=== PATIENT | female | born 1980 | race Caucasian/White ===

== ENCOUNTER → 2017-06-19 10:26 | Outpatient (CLI) | payer BC, SELFPAY ==
[2017-06-20 10:26] LABS: HIV - WCH Non-Reactive (Nonreactive)
[2017-06-20 11:12] LABS: HEPATITIS B SURFACE AG Negative (Negative); Hep C Antibodies 4.8 s/co ratio (0.0-0.9)
[2017-06-22 02:33] LABS: Rapid Plasmin Reagin (RPR) NONREACTIVE (NONREACTIVE)
== END ==
PROVIDERS: Visit Provider Obstetrics & Gynecology
DX: Z11.3 Encounter for screening for infections with a predominantly sexual mode of transmission (principal)
CPT/HCPCS: 36415; 86592; 86703; 86803; 87340

== ENCOUNTER → 2017-07-02 13:41 | Outpatient (CLI) | payer BC, SELFPAY ==
[2017-07-05 10:17] LABS: HPV Reflexed? NOT INDICATED
== END ==
PROVIDERS: Visit Provider Obstetrics & Gynecology
DX: Z12.4 Encounter for screening for malignant neoplasm of cervix (principal)
CPT/HCPCS: 88175; G0145

== ENCOUNTER → 2017-07-12 11:54 | Outpatient (CLI) | payer BC, SELFPAY ==
[2017-07-12 14:14] LABS: Absolute Neutrophil Count 3.3 X10^3/uL (2.0-7.7); Basophil# 0.02 X10^3/uL; Basophil% 0.3 % (0-1); Eosinophils% 6.3 % (0-5); Hematocrit 40.7 % (37-47); Lymphocyte % 33.2 % (19-41); Mean Corp Hgb Conc 31.9 g/gl (32-36); Mean Corpuscular Hgb 28.6 pg (27.0-32.0); Mean Corpuscular Volume 89.5 fL (81-99); Mean Platelet Vol. 10.6 fl (6.2-12.0); Monocyte# 0.45 X10^3/uL; Monocyte% 7.1 % (0-10); Neutrophil # 3.34 X10^3/uL (2.7-7.7); Neutrophil % 52.9 % (47-70); Platelet Count 277 K/mm3 (150-450); RBC Distribution Width SD 42.8 fl (35.1-43.9); Red Blood Count 4.55 M/mm3 (4.2-5.4); White Blood Count 6.3 K/mm3 (4.4-11.0)
[2017-07-12 14:17] LABS: POSITIVE COUNT NO; POSITIVE DIFFERENTIAL NO; POSITIVE MORPHOLOGY NO
[2017-07-12 14:24] LABS: ALB/GLOB Ratio 0.8 RATIO (0.9-2.4); AST(SGOT) 13 U/L (15-37); Alanine Aminotransfer ALT/SGPT 24 U/L (13-56); Albumin, Serum 3.3 g/dL (3.2-5.0); Alkaline Phosphatase 54 U/L (45-117); Anion Gap 7 (5-15); BUN 11 mg/dL (7-18); Calcium,Total 8.2 mg/dL (8.5-10.1); Chloride 109 mmol/L (98-107); Cholesterol 158 mg/dL (200); Creatinine, Serum 0.65 mg/dL (0.55-1.02); EST Glomerular Filtration Rate 108 mL/min (>60); Est Glom Filt Rate - Afr Amer 131 mL/min (>60); Glucose 94 mg/dL (74-106); High Density Lipoprotein 37 mg/dL; Potassium 4.3 mmol/L (3.5-5.1); Protein, Total 7.3 g/dL (6.4-8.2); Sodium Level 140 mmol/L (136-145); Triglycerides 94 mg/dL; Very Low Density Lipoprotein 19 mg/dL (5-40)
[2017-07-12 14:30] LABS: Hemoglobin A1c 5.5 % (4.2-6.3)
[2017-07-13 14:35] LABS: Vitamin D,25 Hydroxy 13.8 ng/mL (29.95-100.01)
[2017-07-17 13:16] LABS: Thyroid Stim Hormone (TSH) 1.65 uIU/mL (0.358-3.74)
== END ==
PROVIDERS: Family Provider Family Medicine; PCP Family Medicine; Visit Provider Family Medicine
DX: Z00.00 Encounter for general adult medical examination without abnormal findings (principal)
CPT/HCPCS: 36415; 80053; 80061; 82306; 83036; 84443; 85025

== ENCOUNTER → 2018-12-20 15:44 | Outpatient (CLI) | payer BC, SELFPAY ==
[2018-12-20 17:39] LABS: Absolute Lymphocyte Count 2.08 X10^3/uL (0.83-4.51); Absolute Neutrophil Count 4.5 X10^3/uL (2.0-7.7); Basophil# 0.04 X10^3/uL; Basophil% 0.5 % (0-1); Eosinophil# 0.21 X10^3/uL; Eosinophils% 2.8 % (0-5); Hematocrit 39.9 % (37-47); Hemoglobin 12.8 g/dL (12.0-15.0); Lymphocyte # 2.08 X10^3/ul (4.0); Lymphocyte % 28.1 % (19-41); Mean Corp Hgb Conc 32.1 g/dL (32-36); Mean Corpuscular Volume 90.5 fL (81-99); Mean Platelet Vol. 10.5 fl (6.2-12.0); Monocyte# 0.49 X10^3/uL; Monocyte% 6.6 % (0-10); NRBC Flagged by Analyzer 0 % (0-5); Neutrophil # 4.54 X10^3/uL (2.7-7.7); Neutrophil % 61.6 % (47-70); Platelet Count 306 K/mm3 (150-450); RBC Distribution Width CV 12.9 % (11.6-14.6); RBC Distribution Width SD 42.9 fl (35.1-43.9); Red Blood Count 4.41 M/mm3 (4.2-5.4); White Blood Count 7.4 K/mm3 (4.4-11.0)
[2018-12-20 17:56] LABS: ALB/GLOB Ratio 1.1 RATIO (0.9-2.4); AST(SGOT) 18 U/L (15-37); Alanine Aminotransfer ALT/SGPT 27 U/L (13-56); Albumin, Serum 3.7 g/dL (3.2-5.0); Alkaline Phosphatase 59 U/L (45-117); Anion Gap 4 (5-15); BUN 9 mg/dL (7-18); BUN/Creat Ratio 13.2 RATIO (10-20); Calcium,Total 8.7 mg/dL (8.5-10.1); Chloride 105 mmol/L (98-107); Creatinine, Serum 0.68 mg/dL (0.55-1.02); EST Glomerular Filtration Rate 101 mL/min (>60); Est Glom Filt Rate - Afr Amer 122 mL/min (>60); Globulin 3.4 g/dL (2.2-4.2); Glucose 81 mg/dL (74-106); Potassium 4.1 mmol/L (3.5-5.1); Protein, Total 7.1 g/dL (6.4-8.2); Sodium Level 138 mmol/L (136-145)
== END ==
PROVIDERS: Family Provider Family Medicine; PCP Family Medicine; Referring Provider Family Medicine; Visit Provider Family Medicine
DX: L50.9 Urticaria, unspecified (principal)
CPT/HCPCS: 36415; 80053; 82140; 85025

== ENCOUNTER 2019-01-30 22:53 | Emergency (ER) | payer BC, SELFPAY ==
[2019-01-30 22:55] VITALS: BP 129/83; PULSE 90; RESP 18; TEMP 36.8; O2SAT 99; BMI 47.5
--- NOTE | 2019-01-30 23:24 | ED.VIS.GI ---
History of Present Illness Chief Complaint: Abd Pain Informant: Patient - Abdominal Pain/Flank Pain Onset: Hours - 7, - - But have been having more brief episodes of this for the past month Timing: Continuous, Waxes and wanes Quality: Aching Location: Epigastric - And supraumbilical Current Severity: Severe - As patient having a wave of pain during exam Maximum Severity: Severe - Nausea/Vomiting/Emesis GI Symptom: Nausea. Negative for: Vomiting Severity: Mild - Diarrhea/Melena/Hematochezia GI Symptom: - - Last bowel movement several days ago, she does not remember what it was like but did not alarm her. Negative for: Diarrhea, Melena, Hematochezia Associated Symptoms: Negative for: Dysuria, Frequency, Hematuria, Urgency LMP: Denies Narrative: States she had some testing 3 years ago for pain like this but did not get answers and did not follow-up. Has been having brief pains for a month or so, but they have been fairly brief and not as severe. She had some wine just prior to this starting, may be half a glass. She is not a heavy drinker. No history of abdominal surgeries. No radiation into her chest but it does radiate to her mid back. - Past Medical History (1) Obsessive compulsive disorder Status: Chronic Past Medical History - Allergies and Home Meds Allergies/Adverse Reactions: Allergies hops Adverse Reaction (Verified 01/31/19 01:06) Other Primary Care Physician: Yair Riojas MD [Primary Care Provider] - Lives: Roommate Smoking Status: Former smoker Alcohol: Occasional Drugs: None Review of Systems General: Denies: Chills, Fever, Sweats Eyes: Denies: Visual changes - bilaterally, Diplopia ENT: Denies: Rhinorrhea, Sore throat Cardiovascular: Denies: Chest pain, Palpitations Respiratory: Denies: Dyspnea, Cough, Dyspnea on exertion Gastrointestinal: Reports: Abdominal pain, Nausea. Denies: Vomiting, Diarrhea, Melena, Hematochezia Genitourinary: Denies: Dysuria, Hematuria, Frequency Musculoskeletal: Reports: Back pain. Denies: Extremity Pain Skin: Denies: Rash, Wounds Neurological: Denies: Headache, Weakness, Numbness Psych: Reports: Anxiety. Denies: Suicidal thoughts Physical Exam Vital Signs/Narrative: Vital Signs Temp Pulse Resp BP Pulse Ox 01/30/19 22:55 98.3 F 90 18 129/83 H 99 Inital Vital Signs reviewed: Yes General: Well nourished, Well developed, Obese, Acute Distress - And pain when becomes severe Head: Normocephalic, Atraumatic Eyes: Perrl, EOMI ENT: Moist mucous membranes, No rhinorrhea Neck: Supple, Nontender Cardiovascular: Regular rate, Regular rhythm, No murmurs Respiratory: No distress, CTA bilaterally, Chest nontender Abdomen: Soft, Nondistended, Normal bowel sounds, Tender - Epigastrium, supraumbilical area, left upper quadrant., - - No hernia. Limited by obesity. No tenderness in right upper quadrant or throughout lower abdomen. Negative for: Soliz's sign Back: Nontender, Normal Inspection. Negative for: CVA tenderness Extremities: Nontender, No edema Skin: Normal color, No rash, No Trauma Neurological: Alert, Oriented x3, Cranial nerves II-XII grossly intact, Normal Strength, Normal Sensation Psychological: Normal Mood, - - Anxious Diagnostic/Tx/Re-eval Impressions Abdomen/Pelvis CT 01/31/19 23:22 IMPRESSION: 1. Fluid-filled small bowel with mild distention suggests possible partial obstruction and/or ileus. Findings also suggest a possible sequela of a gastroenteritis with some involvement of the right colon as well. 2. Nonspecific abnormal thickening of the merlos of the distal esophagus. Electronically Signed: Lyubov Shipley MD at 1:39 EST , Service support , 01/31/19 23:22 Abdomen/Pelvis W IV Cont ONLY [CT] Stat Laboratory Results 01/30/19 01/30/19 01/30/19 23:24 23:24 23:24 WBC 8.2 RBC 4.72 Hgb 13.8 Hct 41.4 MCV 87.7 MCH 29.2 MCHC 33.3 RDW Std Deviation 41.3 RDW Coeff of Fabiano 12.8 Plt Count 319 MPV 9.7 Immature Gran % (Auto) 0.200 Neut % (Auto) 59.6 Lymph % (Auto) 30.0 Edwards % (Auto) 7.6 Eos % (Auto) 2.2 Baso % (Auto) 0.4 Absolute Neuts (auto) 4.9 Absolute Lymphs (auto) 2.46 Nucleated RBC % 0 Sodium 139 Potassium 3.9 Chloride 106 Carbon Dioxide 24.0 Anion Gap 9 BUN 10 Creatinine 0.69 Estim Creat Clear Calc 96.55 Est GFR (MDRD) Af Amer 121 Est GFR (MDRD) Non-Af 100 BUN/Creatinine Ratio 14.6 Glucose 91 Calcium 9.2 Total Bilirubin 0.30 AST 23 ALT 43 Alkaline Phosphatase 53 Total Protein 7.1 Albumin 3.5 Globulin 3.6 Albumin/Globulin Ratio 1.0 Lipase 41 L Serum , Qual NEGATIVE Urine Color Urine Clarity Urine pH Ur Specific [place] Urine Protein Urine Glucose (UA) Urine Ketones Urine Occult Blood Urine Nitrite Urine Bilirubin Urine Urobilinogen Ur Leukocyte Esterase Urine RBC Urine WBC Ur Squamous Epith Cells Calcium Oxalate Crystal Amorphous Sediment Urine Bacteria Urine Mucus 01/31/19 00:40 WBC RBC Hgb Hct MCV MCH MCHC RDW Std Deviation RDW Coeff of Fabiano Plt Count MPV Immature Gran % (Auto) Neut % (Auto) Lymph % (Auto) Edwards % (Auto) Eos % (Auto) Baso % (Auto) Absolute Neuts (auto) Absolute Lymphs (auto) Nucleated RBC % Sodium Potassium Chloride Carbon Dioxide Anion Gap BUN Creatinine Estim Creat Clear Calc Est GFR (MDRD) Af Amer Est GFR (MDRD) Non-Af BUN/Creatinine Ratio Glucose Calcium Total Bilirubin AST ALT Alkaline Phosphatase Total Protein Albumin Globulin Albumin/Globulin Ratio Lipase Serum , Qual Urine Color Yellow Urine Clarity Sl. Cloudy Urine pH 5.0 Ur Specific [place] 1.025 Urine Protein 30 H Urine Glucose (UA) Normal Urine Ketones 150 H Urine Occult Blood 10 H Urine Nitrite Negative Urine Bilirubin Negative Urine Urobilinogen 1 H Ur Leukocyte Esterase 25 H Urine RBC 0-5 SEEN Urine WBC 0-5 SEEN Ur Squamous Epith Cells 5-10 SEEN Calcium Oxalate Crystal 1+ Amorphous Sediment 1+ Urine Bacteria 1+ Urine Mucus 0 SEEN - Medical Decision Making As above labs and urine are all normal, is negative, her CT shows abnormal bowel findings, but these are nonspecific. First off, she has never had any abdominal surgeries and there is no mass or transition point so I do not think she has a bowel obstruction. Second, she has good bowel sounds and does not clinically have an ileus. It is possible that alcohol triggered this severe episode she had today, but the etiology is still unknown based on this testing. She feels much better after fluids, antiemetics, Bentyl, GI cocktail, and anti-inflammatories. We did not need to treat her with narcotics to get her feeling better. There were distal esophageal abnormal findings on the CT. For now I would put her on a daily PPI for a month, prescribe prn's for symptoms, and advised that she follow-up with her doctor. Differential is still include multiple gastrointestinal disorders such as celiac, simple reflux, other types of leaky bowel disease, inflammatory bowel disease, or just simply alcoholic gastritis. Discussed at length with the patient and she is comfortable with this overall plan. ED Disposition - Plan for ED Patient: Disposition: Home or Assisted Living Diagnosis: Upper abdominal pain of unknown etiology Instructions: ABDOMINAL PAIN, Unknown Cause, (Female) Prescriptions: Dicyclomine HCl [Bentyl] 20 mg PO . Q4-6H PRN #20 cap PRN Reason: abdominal pain Prescription Printed Omeprazole 1 cap PO DAILY #30 cap Prescription Printed proMETHazine tablet [Phenergan] 25 mg PO Q6H PRN PRN #10 tab PRN Reason: Nausea Prescription Printed Referrals: Yair Riojas MD [Primary Care Provider] - As soon as possible
[2019-01-30] MEDS: Ketorolac 30 MG/ML Syringe IV (23:41)
[2019-01-30] MEDS: Mag Hydrox/Al Hydrox/Simeth 30 ML UDC PO (23:41)
[2019-01-30] MEDS: Ondansetron 4 MG/2 ML Vial IV (23:41)
[2019-01-30] MEDS: Dicyclomine 10 MG Capsule 20 MG PO (23:41)
[2019-01-30] MEDS: 0.9% Normal Saline 1,000 ML 1000 ML IV (23:44)
[2019-01-30 23:48] LABS: Absolute Lymphocyte Count 2.46 X10^3/uL (0.83-4.51); Absolute Neutrophil Count 4.9 X10^3/uL (2.0-7.7); Basophil# 0.03 X10^3/uL; Basophil% 0.4 % (0-1); Eosinophil# 0.18 X10^3/uL; Eosinophils% 2.2 % (0-5); Hematocrit 41.4 % (37-47); Hemoglobin 13.8 g/dL (12.0-15.0); Lymphocyte # 2.46 X10^3/ul (4.0); Mean Corp Hgb Conc 33.3 g/dL (32-36); Mean Corpuscular Hgb 29.2 pg (27.0-32.0); Mean Corpuscular Volume 87.7 fL (81-99); Mean Platelet Vol. 9.7 fl (6.2-12.0); Monocyte# 0.62 X10^3/uL; Monocyte% 7.6 % (0-10); NRBC Flagged by Analyzer 0 % (0-5); Neutrophil # 4.89 X10^3/uL (2.7-7.7); Neutrophil % 59.6 % (47-70); Platelet Count 319 K/mm3 (150-450); RBC Distribution Width CV 12.8 % (11.6-14.6); RBC Distribution Width SD 41.3 fl (35.1-43.9); Red Blood Count 4.72 M/mm3 (4.2-5.4); White Blood Count 8.2 K/mm3 (4.4-11.0)
[2019-01-30 23:59] LABS: AST(SGOT) 23 U/L (15-37); Alanine Aminotransfer ALT/SGPT 43 U/L (13-56); Albumin, Serum 3.5 g/dL (3.2-5.0); Alkaline Phosphatase 53 U/L (45-117); Anion Gap 9 (5-15); BUN 10 mg/dL (7-18); BUN/Creat Ratio 14.6 RATIO (10-20); Calcium,Total 9.2 mg/dL (8.5-10.1); Chloride 106 mmol/L (98-107); Creatinine, Serum 0.69 mg/dL (0.55-1.02); EST Glomerular Filtration Rate 100 mL/min (>60); Est Glom Filt Rate - Afr Amer 121 mL/min (>60); Estimated Creatinine Clearance 96.55 ml/min; Globulin 3.6 g/dL (2.2-4.2); Glucose 91 mg/dL (74-106); Internal QC Validated? YES +Cl - CLEAR BKGD; Lipase 41 U/L (73-393); Potassium 3.9 mmol/L (3.5-5.1); Pregnancy, Serum, hCG Quali. NEGATIVE Negative; Protein, Total 7.1 g/dL (6.4-8.2); Sodium Level 139 mmol/L (136-145)
[2019-01-31 00:46] LABS: Mucous, Urine 0 SEEN /hpf (<or=2+)
[2019-01-31 01:01] LABS: Color, Urine Yellow (Yellow); Glucose, Dipstick Normal (Normal); Leukocyte Esterase-Dipstick 25 /ul (Negative); Nitrite-Dipstick Negative (Negative); Occult Blood-Urine 10 /ul (Negative); Protein-Dipstick 30 mg/dl (Negative); Specific Gravity, Urine 1.025 (1.002-1.030); Urine Bilirubin Dipstick Negative (Negative); Urine Clarity Sl. Cloudy (Clear); Urine Urobilinogen 1 mg/dl (Normal)
[2019-01-31 01:07] VITALS: BP 108/68; PULSE 65; RESP 18; O2SAT 100
[2019-01-31 01:10] LABS: Ketone-Dipstick 150 mg/dl (Negative)
[2019-01-31 01:12] LABS: White Blood Cells 0-5 SEEN /hpf (0-5)
[2019-01-31 01:13] LABS: Amorphous Sediment 1+; Bacteria 1+ /hpf (None Seen); Calcium Oxalate Crystals Ur 1+ /hpf (<or=2+); Red Blood Cells-Urine 0-5 SEEN /hpf (0-5); Squamous Epithelial Cells - UA 5-10 SEEN /hpf (5-10)
[2019-01-31 03:08] VITALS: BP 111/70; PULSE 75; RESP 14; O2SAT 98
--- NOTE | 2019-01-31 23:22 | CT_ITS ---
STUDY: CT ABDOMEN AND PELVIS WITH CONTRAST REASON FOR EXAM: Female, 39 years old. Abdominal pain for 8 hours. Patient has elevated white count. RADIATION DOSAGE (If Supplied By Facility): CTDIvol = ( 18.74 ) mGy, DLP = ( 1335.61 ) mGycm TECHNIQUE: Transaxial images were obtained from the dome of the diaphragm to the symphysis pubis without oral contrast. 100 mL of Isovue-370 was administered. Sagittal and coronal images were reconstructed. Individualized dose optimization techniques were used for this CT. COMPARISON: Prior comparison studies are not available for review at this time. FINDINGS: The visualized lung bases are unremarkable. The visualized portions of the heart are within normal limits. Normal liver. The gallbladder is contracted. Normal spleen. There is diffuse atrophy of the pancreas. Normal bilateral adrenal glands. Normal right kidney. Normal left kidney. There appears to be abnormal thickening of the merlos of the distal esophagus which measure up to 10.9 mm. Normal visualized stomach. There is fluid filled small bowel with what appears to be mild dilatation measuring up to 2.7 cm. This appears to involve primarily the mid and distal small bowel. The proximal small bowel does not appear to be dilated. There is also fluid filled right colon also probably related to acute infection or inflammation. Stool is visible to the transverse colon, descending colon and sigmoid colon. The colon is not dilated. The appendix is visualized and appears normal. Normal abdominal aorta. Normal inferior vena cava. Normal retroperitoneum. Normal urinary bladder. Normal visualized uterus. Patient has an IUD. There is a small umbilical hernia containing fat. Normal osseous structures. CT/Abdomen/Pelvis W IV Cont ONLY IMPRESSION: 1. Fluid-filled small bowel with mild distention suggests possible partial obstruction and/or ileus. Findings also suggest a possible sequela of a gastroenteritis with some involvement of the right colon as well. 2. Nonspecific abnormal thickening of the merlos of the distal esophagus. Electronically Signed: Lyubov Shipley MD at 1:39 EST , Service support ,
== END 2019-01-31 03:14 | disposition home or self-care (01) ==
PROVIDERS: Emergency Provider Emergency Medicine; Family Provider Family Medicine; PCP Family Medicine
DX: R10.13 Epigastric pain (principal); R10.12 Left upper quadrant pain; F42.9 Obsessive-compulsive disorder, unspecified; Z87.891 Personal history of nicotine dependence
CPT/HCPCS: 74177; 80053; 81001; 83690; 84703; 85025; 96361; 96374; 96375; 99283; J7030; Q9967; A4216; J2405

== ENCOUNTER → 2019-10-02 16:51 | Outpatient (CLI) | payer BC, SELFPAY ==
[2019-10-02 19:09] LABS: Chlamydia Trachomatis by PCR Negative (Negative); Neisserai gonorrhoeae by PCR Negative (Negative); Probe Check PASS; Sample Adequacy Control PASS; Specimen Processing Control PASS
[2019-10-03 10:44] LABS: HIV - WCH Non-Reactive (Nonreactive); Hepatitis B Surface Antigen Non-Reactive (Nonreactive)
[2019-10-09 11:06] LABS: Rapid Plasmin Reagin (RPR) NONREACTIVE (NONREACTIVE)
== END ==
PROVIDERS: PCP Family Medicine; Visit Provider Obstetrics & Gynecology
DX: Z11.3 Encounter for screening for infections with a predominantly sexual mode of transmission (principal)
CPT/HCPCS: 36415; 86592; 86703; 87340; 87491; 87591

== ENCOUNTER → 2019-12-18 15:18 | Outpatient (CLI) | payer BC, SELFPAY ==
[2019-12-18 18:06] LABS: Absolute Lymphocyte Count 1.79 X10^3/uL (0.83-4.51); Absolute Neutrophil Count 3.8 X10^3/uL (2.0-7.7); Basophil# 0.04 X10^3/uL; Basophil% 0.6 % (0-1); Eosinophils% 4.6 % (0-5); Hemoglobin 12.7 g/dL (12.0-15.0); Lymphocyte # 1.79 X10^3/ul (4.0); Lymphocyte % 27.7 % (19-41); Mean Corp Hgb Conc 31.8 g/dL (32-36); Mean Corpuscular Hgb 28.7 pg (27.0-32.0); Mean Corpuscular Volume 90.5 fL (81-99); Mean Platelet Vol. 11.2 fl (6.2-12.0); Monocyte# 0.46 X10^3/uL; Monocyte% 7.1 % (0-10); NRBC Flagged by Analyzer 0 % (0-5); Neutrophil # 3.84 X10^3/uL (2.7-7.7); Neutrophil % 59.5 % (47-70); Platelet Count 319 K/mm3 (150-450); RBC Distribution Width CV 12.9 % (11.6-14.6); RBC Distribution Width SD 42.4 fl (35.1-43.9); Red Blood Count 4.42 M/mm3 (4.2-5.4); White Blood Count 6.5 K/mm3 (4.4-11.0)
[2019-12-18 18:10] LABS: ALB/GLOB Ratio 0.8 RATIO (0.9-2.4); AST(SGOT) 16 U/L (15-37); Alanine Aminotransfer ALT/SGPT 26 U/L (13-56); Albumin, Serum 3.4 g/dL (3.2-5.0); Alkaline Phosphatase 60 U/L (45-117); Anion Gap 7 (5-15); BUN 10 mg/dL (7-18); BUN/Creat Ratio 17.2 RATIO (10-20); Calcium,Total 8.8 mg/dL (8.5-10.1); Chloride 107 mmol/L (98-107); Creatinine, Serum 0.58 mg/dL (0.55-1.02); EST Glomerular Filtration Rate 121 mL/min (>60); Est Glom Filt Rate - Afr Amer 147 mL/min (>60); Glucose 87 mg/dL (74-106); Lipase 55 U/L (73-393); Protein, Total 7.4 g/dL (6.4-8.2); Sodium Level 139 mmol/L (136-145)
== END ==
PROVIDERS: PCP Family Medicine; Referring Provider Family Medicine; Visit Provider Family Medicine
DX: R10.9 Unspecified abdominal pain (principal)
CPT/HCPCS: 36415; 80053; 83690; 85025

== ENCOUNTER → 2020-01-15 15:13 | Outpatient (CLI) | payer BC, SELFPAY | PROVIDERS: PCP Family Medicine; Visit Provider Family Medicine | DX: U07.1 COVID-19 (principal) | CPT/HCPCS: 87635; U0003 ==

== ENCOUNTER → 2020-03-18 | Outpatient (CLI) | payer BC, SELFPAY ==
[2020-03-18 14:55] LABS: Mucous, Urine 0 SEEN /hpf (<or=2+); Red Blood Cells-Urine 0 SEEN /hpf (0-5); White Blood Cells 0 SEEN /hpf (0-5)
[2020-03-18 17:42] LABS: Color, Urine Yellow (Yellow); Glucose, Dipstick Normal (Normal); Ketone-Dipstick Negative (Negative); Leukocyte Esterase-Dipstick 25 /ul (Negative); Nitrite-Dipstick Negative (Negative); Occult Blood-Urine 10 /ul (Negative); Protein-Dipstick Negative (Negative); Urine Bilirubin Dipstick Negative (Negative); Urine Clarity Clear (Clear); Urine Urobilinogen Normal (Normal)
[2020-03-18 17:48] LABS: Bacteria RARE /hpf (None Seen); Squamous Epithelial Cells - UA 0-5 SEEN /hpf (5-10)
== END | disposition home or self-care (01) ==
LOC: LABSPEC 14:53
PROVIDERS: PCP Family Medicine; Referring Provider Family Medicine; Visit Provider Family Medicine
DX: R10.9 Unspecified abdominal pain (principal)
CPT/HCPCS: 81001

== ENCOUNTER → 2020-07-27 | Outpatient (CLI) | payer BC, SELFPAY | END | disposition home or self-care (01) | PROVIDERS: PCP Family Medicine; Visit Provider Family Medicine | DX: Z20.822 Contact with and (suspected) exposure to COVID-19 (principal) | CPT/HCPCS: 87635; U0005; U0003 ==

== ENCOUNTER → 2020-09-08 | Outpatient (CLI) | payer BC, SELFPAY ==
[2020-09-08 19:16] LABS: Probe Check PASS
== END | disposition home or self-care (01) ==
LOC: LABSPEC 16:39
PROVIDERS: PCP Family Medicine; Referring Provider Family Medicine; Visit Provider Family Medicine
DX: U07.1 COVID-19 (principal); J01.90 Acute sinusitis, unspecified
CPT/HCPCS: 87635; U0005; U0003

== ENCOUNTER 2020-09-13 14:38 | Outpatient (CLI) | payer BC, SELFPAY ==
[2020-09-13 11:54] VITALS: BMI 47.5
[2020-09-13 14:46] VITALS: BMI 48.2
[2020-09-13 14:48] VITALS: BP 118/83; PULSE 69; RESP 16; TEMP 36.8; O2SAT 98; BMI 48.2
[2020-09-13 15:26] VITALS: BP 116/73; PULSE 70; RESP 16; TEMP 36.6; O2SAT 98
[2020-09-13 15:50] VITALS: BP 119/84; PULSE 74; RESP 16; TEMP 36.6; O2SAT 98
[2020-09-13 16:18] VITALS: BP 117/82; PULSE 72; RESP 18; TEMP 36.7; O2SAT 98
[2020-09-13 16:39] VITALS: BP 121/77; PULSE 76; RESP 16; TEMP 36.6
== END 2020-09-13 16:50 | disposition home or self-care (01) ==
LOC: ICUOUT 14:38 → ICU 14:40
PROVIDERS: PCP Family Medicine; Referring Provider Nurse Practitioner Acute Care; Visit Provider Nurse Practitioner Acute Care
DX: U07.1 COVID-19 (principal)
CPT/HCPCS: J7050; M0243; Q0240

== ENCOUNTER 2023-03-16 22:54 | Emergency (ER) | payer MEDICAID, SELFPAY ==
[2023-03-16 22:55] VITALS: BP 147/96; PULSE 98; RESP 24; TEMP 36.1; O2SAT 100
[2023-03-16 22:56] VITALS: BP 147/96; PULSE 98; RESP 24; TEMP 36.1; O2SAT 100; BMI 52.4
--- OUTSIDE RECORDS SUMMARY | 2023-03-16 23:19 | XMS RPT_ITS | CCD ---
Author Name Unknown Address [address] [place] [address] Organization [facility] Care Team Providers Care Client Care Manager Name Role Phone Stephane Riojas MD Primary Care Provider STEPHANE RIOJAS Primary Care Unavailable STEPHANE RIOJAS Primary Care Unavailable Medications Current Medications Medication Drug Class(es) Dates Sig (Normalized) Sig (Original) amoxicillin 875 mg / clavulanate 125 mg oral tablet (2 sources) Penicillin-class Antibacterial Start: 12-15-2022 End: 12-20-2022 take 1 tablet by mouth twice daily amoxicillin-clav ulanic acid (AUGMENTIN) 875-125 mg per tablet Take 1 tablet by mouth two times a day for 5 days. 10 tablet 0 12/15/2022 12/20/2022 Active Completed/Discontinued Medications Medication Drug Class(es) Dates Sig (Normalized) Sig (Original) [id number] 200 actuat albuterol 0.09 mg/actuat metered dose inhaler (4 sources) beta2-Adrenergic Agonist Start: 04-28-2017 take 2 puff(s) by inhalation every four hours as needed for wheezing albuterol HFA (VENTOLIN HFA) 90 mcg/actuation inhaler Indications: Acute bronchitis, unspecified organism Inhale 2 Puffs as instructed every 4 hours as needed for Wheezing/Shortness of Breath. 1 Inhaler 0 04/28/2017 Active Problems Problem Classification Problem Date Documented Da te Episodic/Chronic Genitourinary symptoms and ill-defined conditions (2 sources) Increased frequency of urination; Translations: [Frequency of micturition] 01-24-2023 Episodic Other upper respiratory infections (1 source) Chronic sinusitis, unspecified; Translations: [Unspecified sinusitis (chronic)] 10-20-2023 Chronic Other upper respiratory infections (1 source) Acute upper respiratory infection; Translations: [Acute upper respiratory infection, unspecified] 01-24-2023 Episodic Results Test Name Value Interpretation Reference Range Facil ity Vital Signs Date Time Vital Sign Value Performing Clinician Che lucas 01-24-2023 09:16-0500 Body temperature 99.7 [degF] Дмитрий Pradeep [employer] Work Phone: [facility] 01-24-2023 09:16-0500 Body weight 138.17 kg Дмитрийkaden Fernández [employer] Work Phone: [facility] 01-24-2023 09:16-0500 Diastolic blood pressure 88 mm[Hg] Дмитрий Pradeep [employer] Work Phone: [facility] 01-24-2023 09:16-0500 Heart rate 114 /min Дмитрий Fernández [employer] Work Phone: [facility] 01-24-2023 09:16-0500 Respiratory rate 20 /min Дмитрий [employer] Work Phone: [facility] 01-24-2023 09:16-0500 SaO2% (BldA) [Mass fraction] 94 % Дмитрий Fernández [employer] Work Phone: [facility] 01-24-2023 09:16-0500 Systolic blood pressure 120 mm[Hg] Дмитрий Fernández [employer] Work Phone: [facility] 12-15-2022 09:31-0400 Body temperature 98.4 [degF] Jossy Agrawal [employer] Work Phone: [facility] 12-15-2022 09:31-0400 Body weight 140.62 kg Jossy Agrawal [employer] Work Phone: [facility] 12-15-2022 09:31-0400 Diastolic blood pressure 82 mm[Hg] Jossy Agrawal [employer] Work Phone: [facility] 12-15-2022 09:31-0400 Heart rate 84 /min Jossy Agrawal [employer] Work Phone: [facility] 12-15-2022 09:31-0400 Respiratory rate 18 /min Jossy Agrawal [employer]KAELYN Work Phone: [facility] 12-15-2022 09:31-0400 SaO2% (BldA) [Mass fraction] 98 % Jossy Agrawal [employer]KAELYN Work Phone: [facility] 12-15-2022 09:31-0400 Systolic blood pressure 128 mm[Hg] Jossy Agrawal [employer]KAELYN Work Phone: [facility] Encounters Encounter Date Encounter Type Care Provider Facility Start: 01-26-2023 Telephone encounter Jossy narayanan [employer]KAELYN Work Phone: [facility] Procedures Date Procedure Procedure Detail Performing Clinician Start: 01-24-2023 Urnls dip stick/tabl et rgnt auto w/o microscopy [facility] Provider Plan of Treatment Date Care Activity Detail Author Start: 01-26-2023 End: 04-27-2023 Bacteria identified in Urine by Culture URINE CULTURE Microbiology Routine Urinary frequency Expected: 01/26/2023, Expires: 04/27/2023 [facility] Work Phone: Social History Date Type Detail Facility Start: 12-15-2022 Tobacco smoking stat us ILIS Smokes tobacco daily [facility] History of tobacco use Cigarette Smoker C [facility] Start: 02-02-2020 End: 12-15-2022 Cigarettes smoked current (pack per day) - Reported 0.5 [facility] Start: 12-15-2022 Tobacco use and exposure Smoke less tobacco non-user [facility] Start: 12-15-2022 End: 01-24-2023 Alcohol intake Current drinker of alcohol (finding) [facility] Start: 02-02-2020 End: 12-15-2022 Tobacco use panel [facility] National Score (1-10 0), lower number is lower risk Not on file [facility] Start: 01-04-2009 Alcohol Comment Occasional [facility] Start: 1980 Sex Assigned At Not on file C [facility] Clinical Notes 12-15-2022 to 12-01-2023 Telephone Encounter - Aarti Freed - 01/26/2023 11:49 AM ESTTelephone Encounter - Jossy Agrawal APRN.KAELYN - 01/26/2023 11:21 AM ESTPatient InstructionsPatient Instructions Note Date & Type Note Facility 01-26-2023 Miscellaneous Notes Spoke to patient and she is aware that there is a new order in, but patient states she will call back in when she figures out when she is able to come in. Aarti Freed Please inform patient that her urine culture had mixed microbe and essentially a contaminated specimen. This can occur during time of collection. I have placed a new order for urine culture. Please notify and request patient to present for new specimen. She does not need to be seen again, just a nurse visit to provide new specimen. documented in this encounter [facility] 01-24-2023 Note HNO ID: [id number] Author: Дмитрий Fernández APRN.KAELYN Service: ? Author Type: Nurse Practitioner Type: Progress Notes Filed: 01/24/2023 10:30 AM Note Text: Subjective HPI HPI Luis Crook is a 43 year old female who presents today for CC of st, cough, body aches, fever, loss tastes/smell, urinary frequency. This started 2 days ago. Has tried otc medication for relief. Symptoms are worsened by nothing. Risk factors sick exposures recently. Denies possibility of being . nonsmoker. .Patient presents with: Sore Throat: Body aches, cough, loss of taste x 2 days PAST MEDICAL HISTORY Diagnosis Date NEGATIVE MEDICAL HISTORY PAST SURGICAL HISTORY Procedure Laterality Date NONE ALLERGIES Patient has no known allergies. MEDICATIONS buPROPion SR (ZYBAN SR; WELLBUTRIN SR) 150 mg 12 hr tablet Take 1 (one) Tablet by mouth two times daily azithromycin (ZITHROMAX) 250 mg tablet Take 2 tablets today then one tablet daily for 4 days. (Patient not taking: Reported on 12/15/2022) albuterol HFA (VENTOLIN HFA) 90 mcg/actuation inhaler Inhale 2 Puffs as instructed every 4 hours as needed for Wheezing/Shortness of Breath. (Patient not taking: Reported on 12/15/2022) FAMILY HISTORY Problem Relation Age of Onset None Mother Ischemic Heart Disease Father fatal DC age 51 Social History Tobacco Use Smoking status: Every Day Packs/day: 0.50 Years: 10.00 Additional pack years: 0.00 Total pack years: 5.00 Types: Cigarettes Smokeless tobacco: Never Substance Use Topics Alcohol use: Yes Comment: Occasional Drug use: No Review of Systems Constitutional: Positive for chills, fever and malaise/fatigue. HENT: Positive for congestion and sore throat. Negative for ear pain and nosebleeds. Respiratory: Positive for cough. Negative for shortness of breath and wheezing. Cardiovascular: Negative for chest pain. Gastrointestinal: Negative for diarrhea and vomiting. Genitourinary: Positive for frequency. Negative for dysuria and urgency. Musculoskeletal: Negative for neck pain. Skin: Negative for itching and rash. Objective Blood pressure 120/88, pulse 114, temperature 37.6 ?C (99.7 ?F), resp. rate 20, weight (!) 138.2 kg (304 lb 9.6 oz), last menstrual period 12/28/2008, SpO2 94 %. Physical Exam Constitutional: General: She is not in acute distress. Appearance: Normal appearance. She is not toxic-appearing or diaphoretic. HENT: Head: Normocephalic and atraumatic. Cardiovascular: Rate and Rhythm: Normal rate and regular rhythm. Heart sounds: Normal heart sounds, S1 normal and S2 normal. Pulmonary: Effort: Pulmonary effort is normal. Breath sounds: Normal breath sounds. Abdominal: General: Bowel sounds are normal. Palpations: Abdomen is soft. Tenderness: There is no abdominal tenderness. Lymphadenopathy: Cervical: No cervical adenopathy. Right cervical: No superficial cervical adenopathy. Left cervical: No superficial cervical adenopathy. Skin: General: Skin is warm and dry. Neurological: Mental Status: She is alert and oriented to person, place, and time. Gait: Gait is intact. ASSESSMENT/PLAN: 1. URI, acute - ICD9: 465.9, ICD10: J06.9 (primary diagnosis) - Discussed viral etiology and rationale for treatment. - Symptomatic treatment with prn analgesia - Supportive care with fluids and rest - Follow up in 3-5 days if symptoms persist or sooner if worsening of symptoms - COVID AND INFLUENZA A/B AND RSV NAAT, ROUTINE 2. Urinary frequency - ICD9: 788.41, ICD10: R35.0 acute - UA positive for proteinuria - Send urine for culture - UA DIP OB, URINE (POC) - URINE CULTURE Дмитрий Fernández APRN.CNP [facility] 01-24-2023 Instructions Дмитрий Fernández APRN.CNP - 01/24/2023 9:42 AM EST How to Manage Common Symptoms Associated with COVID for Adults Fever- Fever is a temperature over 100.4 F and can occur when the body is fighting an infection. To help treat a fever: Drink plenty of fluids and stay well hydrated. Eat small amounts of easy to digest food. Rest. Your body needs rest to recover, but getting up and moving around the house frequently is a good idea. You should try to continue doing your normal daily activities (bathing, toileting, grooming, cooking), though you will probably feel tired, and need to rest often. Avoid any heavy activity or exercise, as this will increase your body temperature. Dress in light clothing and stay covered in a light sheet. Keep the room temperature cool. Take a slightly warm (not cold or cool) bath, or apply damp washcloths to the forehead and wrists. Cough- Cough is a common symptom associated with COVID and can be bothersome. To help treat a cough: Stay well hydrated. Try warm water or tea with lemon and/or honey to help soothe the cough. Use a humidifier to add moisture to the air. Try a product with menthol, like a cough drop or a rub for your chest such as Vicks, which can help reduce cough. Try cough drops. Avoid smoking and other strong odors or perfumes. Try breathing exercises to keep your lungs open and clear. Take a big deep breath through your nose and hold for 5 seconds before slowly releasing. Repeat frequently, while you are awake. Congestion- Runny nose or nasal congestion can occur with COVID. Treatment can help relieve symptoms: Try OTC nasal saline spray, or nasal saline rinse to relieve mucus congestion. Nasal strips can help keep nasal passages open, to increase airflow. Elevating your head with an extra pillow in bed can help reduce congestion. Using a humidifier can increase moisture in the air, and make breathing easier. Sore Throat- Another common symptom with COVID, can be managed at home by: Stay well hydrated. Gargle with salt water - mix teaspoon salt with 1 cup of warm water and gargle. This helps to loosen mucus in the back of the throat and may reduce discomfort. Try ice chips, popsicles or lozenges to soothe the throat. Nausea/Vomiting/Diarrhea- These are common symptoms, and staying hydrated is most important. If you are nauseous or vomiting, start with small sips of water every 10-15 minutes and increase as tolerated. You can try sucking an ice cube too. If tolerating, you can try pedialyte or Gatorade, or flat sprite or mary carmen-calvin. Start slowly and increase as you are able to. Instead of meals, try smaller, more frequent snacks. Try eating bland foods like crackers, toast, rice, and applesauce. Avoid spicy, greasy or fried foods and dairy containing foods. Even if you aren't feeling hungry due to lack of smell or taste, it is important to try to take in some food when you are able. After drinking and eating, rest in an upright position for up to two hours as needed to help decrease nauseous feelings. Try closing your eyes, avoid moving and watching TV. Avoid strong odors that can make you feel more nauseated. When to seek emergency medical attention Look for emergency warning signs for COVID-19. If having any of these symptoms, seek emergency medical care immediately: Trouble breathing Persistent pain or pressure in the chest New confusion Inability to wake or stay awake Bluish lips or face *This list is not all possible symptoms. Please call your medical provider for any other symptoms that are severe or concerning to you. documented in this encounter [facility] 01-24-2023 History of Present illness Narrative Subjective HPI HPI Luis Crook is a 43 year old female who presents today for CC of st, cough, body aches, fever, loss tastes/smell, urinary frequency. This started 2 days ago. Has tried otc medication for relief. Symptoms are worsened by nothing. Risk factors sick exposures recently. Denies possibility of being . nonsmoker. .Patient presents with: Sore Throat: Body aches, cough, loss of taste x 2 days PAST MEDICAL HISTORY Diagnosis Date NEGATIVE MEDICAL HISTORY PAST SURGICAL HISTORY Procedure Laterality Date NONE ALLERGIES Patient has no known allergies. MEDICATIONS buPROPion SR (ZYBAN SR; WELLBUTRIN SR) 150 mg 12 hr tablet Take 1 (one) Tablet by mouth two times daily azithromycin (ZITHROMAX) 250 mg tablet Take 2 tablets today then one tablet daily for 4 days. (Patient not taking: Reported on 12/15/2022) albuterol HFA (VENTOLIN HFA) 90 mcg/actuation inhaler Inhale 2 Puffs as instructed every 4 hours as needed for Wheezing/Shortness of Breath. (Patient not taking: Reported on 12/15/2022) FAMILY HISTORY Problem Relation Age of Onset None Mother Ischemic Heart Disease Father fatal DC age 51 Social History Tobacco Use Smoking status: Every Day Packs/day: 0.50 Years: 10.00 Additional pack years: 0.00 Total pack years: 5.00 Types: Cigarettes Smokeless tobacco: Never Substance Use Topics Alcohol use: Yes Comment: Occasional Drug use: No Review of Systems Constitutional: Positive for chills, fever and malaise/fatigue. HENT: Positive for congestion and sore throat. Negative for ear pain and nosebleeds. Respiratory: Positive for cough. Negative for shortness of breath and wheezing. Cardiovascular: Negative for chest pain. Gastrointestinal: Negative for diarrhea and vomiting. Genitourinary: Positive for frequency. Negative for dysuria and urgency. Musculoskeletal: Negative for neck pain. Skin: Negative for itching and rash. Objective Blood pressure 120/88, pulse 114, temperature 37.6 C (99.7 F), resp. rate 20, weight (!) 138.2 kg (304 lb 9.6 oz), last menstrual period 12/28/2008, SpO2 94 %. Physical Exam Constitutional: General: She is not in acute distress. Appearance: Normal appearance. She is not toxic-appearing or diaphoretic. HENT: Head: Normocephalic and atraumatic. Cardiovascular: Rate and Rhythm: Normal rate and regular rhythm. Heart sounds: Normal heart sounds, S1 normal and S2 normal. Pulmonary: Effort: Pulmonary effort is normal. Breath sounds: Normal breath sounds. Abdominal: General: Bowel sounds are normal. Palpations: Abdomen is soft. Tenderness: There is no abdominal tenderness. Lymphadenopathy: Cervical: No cervical adenopathy. Right cervical: No superficial cervical adenopathy. Left cervical: No superficial cervical adenopathy. Skin: General: Skin is warm and dry. Neurological: Mental Status: She is alert and oriented to person, place, and time. Gait: Gait is intact. ASSESSMENT/PLAN: 1. URI, acute - ICD9: 465.9, ICD10: J06.9 (primary diagnosis) - Discussed viral etiology and rationale for treatment. - Symptomatic treatment with prn analgesia - Supportive care with fluids and rest - Follow up in 3-5 days if symptoms persist or sooner if worsening of symptoms - COVID & INFLUENZA A/B & RSV NAAT, ROUTINE 2. Urinary frequency - ICD9: 788.41, ICD10: R35.0 acute - UA positive for proteinuria - Send urine for culture - UA DIP OB, URINE (POC) - URINE CULTURE Дмитрий Fernández APRN.KAELYN documented in this encounter [facility] 12-15-2022 Miscellaneous Notes Patient calling with health information: patient requesting health information about a prescription for methylprednisolone from the pharmacy and was unsure of how to take it. . Patient denies any new or worsening symptoms of which a provider is not aware:Yes. Pharmacy called and instructed the patient to look on the foil of the medication for the dosing. Patient reported that she is legally blind and that is the reason she could not see the dosing. Advised to have another person or relative read the package before she attempts to take a dose. Patient stated that she will use her phone to see the package and that this is how she usually reads something. Advised to call back if any further assistance is needed. documented in this encounter [facility] 12-15-2022 Note HNO ID: [id number] Author: Jossy Agrawal APRN.CNP Service: ? Author Type: Nurse Practitioner Type: Progress Notes Filed: 12/15/2022 10:01 AM Note Text: This note was created using Navutriter. Subjective Luis Crook is a 42 year old female. 42 year old female with no PMH presents for illness. Acute onset 12/03/22 +sinus pressure +nasal congestion +ear fullness. +headache +sore throat Denies cough Denies SOB or dyspnea Denies N/V/D Has used allergy medicine and OTC without relief. Denies tobacco usage. The history is provided by the patient. No appliance fixer was used. Sinus Problem This is a new problem. The current episode started 1 to 4 weeks ago. The problem occurs constantly. The problem has been gradually worsening. Associated symptoms include congestion, fatigue, headaches and a sore throat. Pertinent negatives include no abdominal pain, anorexia, arthralgias, change in bowel habit, chest pain, chills, coughing, diaphoresis, fever, joint swelling, myalgias, nausea, neck pain, numbness, rash, swollen glands, urinary symptoms, vertigo, visual change, vomiting or weakness. Nothing aggravates the symptoms. Treatments tried: allergy medicine and OTC medicines. The treatment provided no relief. PAST MEDICAL HISTORY Diagnosis Date NEGATIVE MEDICAL HISTORY PAST SURGICAL HISTORY Procedure Laterality Date NONE ALLERGIES Patient has no known allergies. MEDICATIONS buPROPion SR (ZYBAN SR; WELLBUTRIN SR) 150 mg 12 hr tablet Take 1 (one) Tablet by mouth two times daily amoxicillin-clavulanic acid (AUGMENTIN) 875-125 mg per tablet Take 1 tablet by mouth two times a day for 5 days. methylPREDNISolone (MEDROL, JAKE,) 4 mg Dose-Pack Follow dosing instructions, take with food. azithromycin (ZITHROMAX) 250 mg tablet Take 2 tablets today then one tablet daily for 4 days. (Patient not taking: Reported on 12/15/2022) albuterol HFA (VENTOLIN HFA) 90 mcg/actuation inhaler Inhale 2 Puffs as instructed every 4 hours as needed for Wheezing/Shortness of Breath. (Patient not taking: Reported on 12/15/2022) FAMILY HISTORY Problem Relation Age of Onset None Mother Ischemic Heart Disease Father fatal DC age 51 Social History Tobacco Use Smoking status: Every Day Packs/day: 0.50 Years: 10.00 Additional pack years: 0.00 Total pack years: 5.00 Types: Cigarettes Smokeless tobacco: Never Substance Use Topics Alcohol use: Yes Comment: Occasional Drug use: No Review of Systems Constitutional: Positive for fatigue. Negative for chills, diaphoresis and fever. HENT: Positive for congestion, postnasal drip, rhinorrhea, sinus pressure, sinus pain and sore throat. Negative for ear pain. Eyes: Negative for pain, discharge, redness and itching. Respiratory: Negative for apnea, cough, choking and chest tightness. Cardiovascular: Negative for chest pain. Gastrointestinal: Negative for abdominal pain, anorexia, change in bowel habit, nausea and vomiting. Musculoskeletal: Negative for arthralgias, joint swelling, myalgias and neck pain. Skin: Negative for color change, pallor and rash. Allergic/Immunologic: Negative for environmental allergies, food allergies and immunocompromised state. Neurological: Positive for headaches. Negative for vertigo, weakness and numbness. Hematological: Negative for adenopathy. Does not bruise/bleed easily. Psychiatric/Behavioral: Negative for agitation and behavioral problems. Objective BP 128/82 Pulse 84 Temp 36.9 ?C (98.4 ?F) (Tympanic) Resp 18 Wt (!) 140.6 kg (310 lb) LMP 12/28/2008 SpO2 98% Physical Exam Vitals and nursing note reviewed. Constitutional: General: She is not in acute distress. Appearance: Normal appearance. She is normal weight. She is not ill-appearing, toxic-appearing or diaphoretic. HENT: Head: Normocephalic and atraumatic. Comments: +maxillary sinus pressure Right Ear: Ear canal and external ear normal. Left Ear: Ear canal and external ear normal. Ears: Comments: B/L TMs mild erythema. Nose: Congestion present. No rhinorrhea. Mouth/Throat: Mouth: Mucous membranes are moist. Pharynx: Posterior oropharyngeal erythema present. No oropharyngeal exudate. Eyes: General: Right eye: No discharge. Left eye: No discharge. Extraocular Movements: Extraocular movements intact. Conjunctiva/sclera: Conjunctivae normal. Pupils: Pupils are equal, round, and reactive to light. Cardiovascular: Rate and Rhythm: Normal rate and regular rhythm. Pulses: Normal pulses. Heart sounds: Normal heart sounds. No murmur heard. No friction rub. Pulmonary: Effort: Pulmonary effort is normal. No respiratory distress. Breath sounds: Normal breath sounds. No stridor. No wheezing, rhonchi or rales. Chest: Chest wall: No tenderness. Abdominal: General: Abdomen is flat. There is no distension. Palpations: Abdomen is soft. There is no mass. Tenderness: The (more content not included)... [facility] 12-15-2022 Instructions Jossy Agrawal APRN.KAELYN - 12/15/2022 9:55 AM EDT Images from the original note were not included. Adult Sinusitis Patient Education What is Sinusitis? Sinusitis [[id number]] is inflammation of the sinuses or swelling of the lining of the sinus cavity or nose. During an infection the sinuses become blocked with fluid causing swelling of the lining of the sinuses. Symptoms: (viral and bacterial infections) Stuffy nose Runny nose Postnasal drip Fever Toothache Headache Tiredness Cough Sore throat Face and head pressure and or pain Common causes: 98% of sinus infections are viral caused by viruses. Risk Factors of Sinusitis Include: Allergies, air pollution, indoor humidity and outdoor temperature changes, andstructural changes in the nose may contribute to sinus pain, pressure and congestion. When to get help? Temperature greater than 100.4 F Symptoms lasting more than 10 days or worsening symptoms greater than 7-10 days. If you do not improve or worsen after a course of antibiotics, you should be re-examined. Diagnosis and Treatment: Your healthcare provider will ask a number of questions about your symptoms and how long they have occurred. If symptoms of sinusitis persist greater than 10 days, it is possible you have a bacterial sinus infection and an antibiotic is prescribed. If it is viral, antibiotics will not help. You may be instructed to take [id number] medications for symptoms. including fever reducers acetaminophen or ibuprofen, nasal saline spray, cough and cold preparations and decongestants as prescribed by the physician, nurse practitioner or physician railways assistant. Self-Care and Prevention: Rest Fluids for hydration Good hand washing Humidifier Avoid smoking and exposure to second hand smoke Avoid sick contacts documented in this encounter [facility] 12-15-2022 History of Present illness Narrative This note was created using Navutriter. Subjective Luis Crook is a 42 year old female. 42 year old female with no PMH presents for illness. Acute onset 12/03/22 +sinus pressure +nasal congestion +ear fullness. +headache +sore throat Denies cough Denies SOB or dyspnea Denies N/V/D Has used allergy medicine and OTC without relief. Denies tobacco usage. The history is provided by the patient. No appliance fixer was used. Sinus Problem This is a new problem. The current episode started 1 to 4 weeks ago. The problem occurs constantly. The problem has been gradually worsening. Associated symptoms include congestion, fatigue, headaches and a sore throat. Pertinent negatives include no abdominal pain, anorexia, arthralgias, change in bowel habit, chest pain, chills, coughing, diaphoresis, fever, joint swelling, myalgias, nausea, neck pain, numbness, rash, swollen glands, urinary symptoms, vertigo, visual change, vomiting or weakness. Nothing aggravates the symptoms. Treatments tried: allergy medicine and OTC medicines. The treatment provided no relief. PAST MEDICAL HISTORY Diagnosis Date NEGATIVE MEDICAL HISTORY PAST SURGICAL HISTORY Procedure Laterality Date NONE ALLERGIES Patient has no known allergies. MEDICATIONS buPROPion SR (ZYBAN SR; WELLBUTRIN SR) 150 mg 12 hr tablet Take 1 (one) Tablet by mouth two times daily amoxicillin-clavulanic acid (AUGMENTIN) 875-125 mg per tablet Take 1 tablet by mouth two times a day for 5 days. methylPREDNISolone (MEDROL, JAKE,) 4 mg Dose-Pack Follow dosing instructions, take with food. azithromycin (ZITHROMAX) 250 mg tablet Take 2 tablets today then one tablet daily for 4 days. (Patient not taking: Reported on 12/15/2022) albuterol HFA (VENTOLIN HFA) 90 mcg/actuation inhaler Inhale 2 Puffs as instructed every 4 hours as needed for Wheezing/Shortness of Breath. (Patient not taking: Reported on 12/15/2022) FAMILY HISTORY Problem Relation Age of Onset None Mother Ischemic Heart Disease Father fatal DC age 51 Social History Tobacco Use Smoking status: Every Day Packs/day: 0.50 Years: 10.00 Additional pack years: 0.00 Total pack years: 5.00 Types: Cigarettes Smokeless tobacco: Never Substance Use Topics Alcohol use: Yes Comment: Occasional Drug use: No Review of Systems Constitutional: Positive for fatigue. Negative for chills, diaphoresis and fever. HENT: Positive for congestion, postnasal drip, rhinorrhea, sinus pressure, sinus pain and sore throat. Negative for ear pain. Eyes: Negative for pain, discharge, redness and itching. Respiratory: Negative for apnea, cough, choking and chest tightness. Cardiovascular: Negative for chest pain. Gastrointestinal: Negative for abdominal pain, anorexia, change in bowel habit, nausea and vomiting. Musculoskeletal: Negative for arthralgias, joint swelling, myalgias and neck pain. Skin: Negative for color change, pallor and rash. Allergic/Immunologic: Negative for environmental allergies, food allergies and immunocompromised state. Neurological: Positive for headaches. Negative for vertigo, weakness and numbness. Hematological: Negative for adenopathy. Does not bruise/bleed easily. Psychiatric/Behavioral: Negative for agitation and behavioral problems. Objective BP 128/82 Pulse 84 Temp 36.9 C (98.4 F) (Tympanic) Resp 18 Wt (!) 140.6 kg (310 lb) LMP 12/28/2008 SpO2 98% Physical Exam Vitals and nursing note reviewed. Constitutional: General: She is not in acute distress. Appearance: Normal appearance. She is normal weight. She is not ill-appearing, toxic-appearing or diaphoretic. HENT: Head: Normocephalic and atraumatic. Comments: +maxillary sinus pressure Right Ear: Ear canal and external ear normal. Left Ear: Ear canal and external ear normal. Ears: Comments: B/L TMs mild erythema. Nose: Congestion present. No rhinorrhea. Mouth/Throat: Mouth: Mucous membranes are moist. Pharynx: Posterior oropharyngeal erythema present. No oropharyngeal exudate. Eyes: General: Right eye: No discharge. Left eye: No discharge. Extraocular Movements: Extraocular movements intact. Conjunctiva/sclera: Conjunctivae normal. Pupils: Pupils are equal, round, and reactive to light. Cardiovascular: Rate and Rhythm: Normal rate and regular rhythm. Pulses: Normal pulses. Heart sounds: Normal heart sounds. No murmur heard. No friction rub. Pulmonary: Effort: Pulmonary effort is normal. No respiratory distress. Breath sounds: Normal breath sounds. No stridor. No wheezing, rhonchi or rales. Chest: Chest wall: No tenderness. Abdominal: General: Abdomen is flat. There is no distension. Palpations: Abdomen is soft. There is no mass. Tenderness: There is no abdominal tenderness. There is no right CVA tenderness, left CVA tenderness, guarding or rebound. Hernia: No hernia is present. Musculoskeletal: General: No swelling, tenderness, deformity or signs of injury. Normal range of motion. Cervical back: Normal range of motion and neck supple. No rigidity. Right lower leg: No edema. Left lower leg: No edema. Lymphadenopathy: Cervical: Cervical adenopathy present. Skin: General: Skin is warm and dry. Coloration: Skin is not jaundiced or pale. Findings: No bruising, erythema, lesion or rash. Neurological: General: No focal deficit present. Mental Status: She is alert and oriented to person, place, and time. Cranial Nerves: No cranial nerve deficit. Sensory: No sensory deficit. Motor: No weakness. Coordination: Coordination normal. Gait: Gait normal. Psychiatric: Mood and Affect: Mood normal. Behavior: Behavior normal. Thought Content: Thought content normal. Judgment: Judgment normal. Assessment and Plan ASSESSMENT/PLAN: 1. Rhinosinusitis - ICD9: 473.9, ICD10: J32.9 X 10 days - Will begin treatment with as per antibiotic as written, see orders - The patient should also be given OTC cough and cold meds as needed, warm salt water gargles, throat lozenges and/or OTC throat spray as needed, and nasal saline gtts and suction prn for the first 5-7 days of treatment. - Supportive care with plenty of fluids, rest, and analgesia prn. - Follow up in 3-5 days if symptoms persist or worsen. Jossy Agrawal APRN.KAELYN documented in this encounter [facility] URI, acute- Primary Acute upper respiratory infections of unspecified site Urinary frequency [facility] Diagnosis Urinary frequency- Primary documented in this encounter [facility] Health Concerns Infection Onset Date Last Indicated Resolved Time COVID-19 Confirmed 01/24/2023 01/24/2023 Summary Purpose Family History No Family History Records Found Advance Directives No Advanced Directives Records Found Additional Source Comments Source Comments (unrecognize d section and content) In the event this informatio n is protected by the Federal Confidentiality of Alcohol and Drug Abuse Patient Records regulations: The Federal rules restrict any use of the information to criminally investigate or prosecute any alcohol or drug abuse patient.[facility] the event this information is protected by the Federal Confidentiality of Alcohol and Drug Abuse Patient Records regulations: The Federal rules restrict any use of the information to criminally investigate or prosecute any alcohol or drug abuse patient.[facility] the event this information is protected by the Federal Confidentiality of Alcohol and Drug Abuse Patient Records regulations: The Federal rules restrict any use of the information to criminally investigate or prosecute any alcohol or drug abuse patient.[facility] the event this information is protected by the Federal Confidentiality of Alcohol and Drug Abuse Patient Records regulations: The Federal rules restrict any use of the information to criminally investigate or prosecute any alcohol or drug abuse patient.[facility] Reason for Visit (unrecogniz ed section and content) Reason Comments Follow Up Reason Comments Sore Throat Body aches, cough, l oss of taste x 2 days Reason Comments Results Care Teams (unrecognized sec tion and content) Client Care Manager Relationship Specialty Start Date End Date Stephane Riojas MD [address] [place] [address] PCP - General Family Medicine 12/15/22 Client Care Manager Relationship Specialty Start Date End Date Stephane Riojas MD [address] [place] [address] PCP - General Family Medicine 12/15/22 Client Care Manager Relationship Specialty Start Date End Date Stephane Riojas MD [address] [place] [address] PCP - General Family Medicine 12/15/22 INFORMATION SOURCE (unrecogn ized section and content) FOR RECORDS PERTAINING TO PATIENTS WHO ARE OR HAVE BEEN ENROLLED IN A CHEMICAL DEPENDENCY/SUBSTANCEABUSE PROGRAM, SOME INFORMATION MAY BE OMITTED. This clinical summary was aggregated from multiple sources. Caution should be exercised in using it in the provision of clinical care. This summary normalizes information from multiple sources, and as a consequence, information in this document may materially change the coding, format and clinical context of patient data. In addition, data may be omitted in some cases. CLINICAL DECISIONS SHOULD BE BASED ON THE PRIMARY CLINICAL RECORDS. [employer] [facility]. provides no warranty or guarantee of the accuracy or completeness of information in this document.
--- NOTE | 2023-03-16 23:21 | EDS_ITS ---
HPI History of Present Illness Chief Complaint: Edema Detail of Chief Complaint: Right-sided preauricular facial swelling that is resolved. Informant: patient Onset/Context/Timing Onset: Today and Hours Context: Gradual Onset Current Severity: Gone Maximum Severity: Mild Narrative Narrative: 43-year-old female history of depression. Said several hours ago she noticed swelling in the preauricular area of her right jaw just before the ear. Denies any dental pain. No trauma. No earache. No sore throat. No fever. No trouble swallowing or breathing. States it is much better and almost completely resolved now. No prior history. Prior similar symptoms: No Recent Illness/Hospitalization: No PFSH PFSH Medical History Cellulitis of right forearm COVID Depression Obesity Home Medications bupropion HCl 150 mg tablet,12 hr sustained-release 150 mg PO DAILY mental health 01/31/19 [History Last Taken 09/13/20] Allergy/AdvReac Type Severity Reaction Status Date / Time hops AdvReac Other Verified 03/16/23 22:55 Social History Smoking Status: Former smoker ROS ROS ED ROS Narrative Denies recent illness Review of Systems ROS Unobtainable: Denies due to encephalopathy Constitutional Constitutional ED: Denies chills or fever(s) Eyes Eyes: Denies blurry vision ENT ENT ED: Denies ear pain Cardiovascular Cardiovascular: Denies chest pain Respiratory/Chest Respiratory/Chest: Denies cough Gastrointestinal Gastrointestinal: Denies abdominal pain Genitourinary Genitourinary ED: Denies dysuria or hematuria Musculoskeletal Musculoskeletal: Denies arthralgias Integumentary Denies abscess or Abrasions Neurologic Neurologic: Denies headache(s) Psychiatric Psychiatric: Denies anxiety or depression Endocrine Endocrinology: Denies cold intolerance Hematologic/Lymphatic Hematologic/Lymphatic: Reports none Allergic/Immunologic Allergic/Immunologic ED: Denies mouth swelling, tongue swelling or urticaria EXAM Physical Exam Narrative Exam Narrative: Well-appearing 43-year-old female. Vital signs are stable afebrile. H EENT exam pupils round reactive light. TMs are normal bilaterally. No signs of infection. Posterior pharynx normal. No trouble opening or closing her mouth. Currently no facial swelling. No salivary gland swelling. No cervical or preauricular lymphadenopathy. No abscess. No trouble opening closing her mouth. No gingival infection. No sublingual infection in her mouth. Good dentition. Neck there is no lymphadenopathy. Trachea midline. Lungs clear to auscultation. Heart regular rhythm no murmur. Abdomen soft nontender. Back nontender. Neurologically she is awake and alert with no focal motor deficits. Moving all 4 extremities. Nontender no edema. Recently has a normal exam. Currently there is no swelling or lymphadenopathy. No abscess or swollen salivary gland. Const Vital Signs: 03/16/23 22:56 03/16/23 22:55 Temperature 96.9 F L 96.9 F L Temperature Source Temporal Temporal Pulse Rate 98 98 Respiratory Rate 24 H 24 H Blood Pressure 147/96 H 147/96 H Blood Pressure Mean 113 113 Pulse Ox 100 100 Oxygen Delivery Method Room Air Room Air Positive well nourished and well developed; Negative for cachectic, contractures or unkempt General Appearance ED: well developed and NAD; Negative for unkempt, cachectic, contractures, cyanotic, diaphoretic or pallor Nutritional Appearance: Negative for cachectic HEENT Reports TM's clear and moist mucous membranes; Denies dry mucous membranes or other Negative for trauma, tenderness or other Tympanic Membrane ED: Yes TM's clear Mouth ED: No dry mucous membranes Mouth: No dry mucous membranes Eyes PERRL and EOMs intact bilaterally General Eye ED: Negative for pale conjunctiva, scleral icterus or other Neck no lymphadenopathy, supple and no JVD General: Negative for tenderness Lymph Lymphatic: Negative for other Chest Wall inspection of chest normal and palpation of chest normal Chest: Negative for other Resp normal respiratory effort and clear to auscultation bilaterally Effort and Inspection: Negative for retractions Auscultation: Negative for rales, rhonchi or wheezes Cardio regular rate, regular rhythm, S1 normal heart sound, S2 normal heart sound and no murmurs Palpation: Negative for palpable S3 Rate: Negative for bradycardia Rhythm: Negative for abnormal rhythm GI normal to inspection, nondistended, normoactive bowel sounds, non-tender, non- distended and no masses Inspection: Negative for abdominal distention Auscultation: normoactive bowel sounds Palpation: soft; Negative for tender or guarding Back/Spine no CVA tenderness General Back: Negative for CVA tenderness Cervical Spine: Negative for cervical spine tenderness Thoracic Spine / Upper Back: Negative for thoracic spinal tenderness Lumbar Spine / Lower Back: Negative for lumbar spinal tenderness Extremity normal to inspection General Extremety ED: Negative for edema or tenderness General Extremity: Negative for edema Neuro oriented x3 and CN's II-XII intact bilaterally Sensorium / Orientation: alert; Negative for orientation impaired, lethargic or stuporous Motor Exam: strength 5/5 throughout; Negative for general weakness or strength abnormal Psych mental status grossly normal Appearance: Negative for unkempt or other Attitude: No agitated Mood & Affect: Negative for depressed or tearful Skin no rashes or lesions noted, no wounds and skin turgor normal General Skin Exam: Negative for elasticity normal, jaundice or pallor Lesions: No lesion noted Rashes: No rashes noted Trauma: Negative for abrasion Wounds: Negative for wounds noted MDM MDM MDM Narrative Medical decision making narrative: 43-year-old female that had right-sided preauricular facial swelling that is now resolved. Is a normal exam. There is no signs of preauricular or cervical lymphadenopathy. There is no signs of dental or posterior pharyngeal infection. There is no gingivitis. TMs are normal. Follow-up as needed. Return if worse. She does not need antibiotics or imaging at this time she is not a lab work. Discharge Plan Triage Chief Complaint: Edema ED Provider: Neftaly Smiley Dx/Rx/DC Orders Clinical Impression: Facial swelling, History of depression Prescriptions: No Action bupropion HCl 150 MG tablet sustained-release 12 hr 150 mg PO DAILY Patient Comments: TAKE 1 TABLET BY MOUTH TWICE DAILY Primary Care Provider: Yair Riojas Referrals: Yair Riojas MD [Primary Care Provider] - 3-5 Days if not improving Activity Restrictions/Additional Instructions: Motrin for any pain or swelling. At this time there is no signs of any infection I do not think you need an antibiotic. Your ears look good. Your posterior pharynx of your throat looks good. There is no obvious dental infection. There is no obvious infection of your lymph nodes or salivary glands. Follow-up with your doctor if not improving or return emergency department if worse. Disposition Disposition: Home, Self Care
[2023-03-16 23:34] VITALS: BP 136/72; PULSE 80; RESP 18
== END 2023-03-16 23:34 | disposition home or self-care (01) ==
PROVIDERS: Emergency Provider Emergency Medicine; PCP Family Medicine; Visit Provider Emergency Medicine
DX: R60.9 Edema, unspecified (principal); Z87.891 Personal history of nicotine dependence; Z86.16 Personal history of COVID-19
CPT/HCPCS: 99282

== ENCOUNTER → 2024-07-10 | Outpatient (CLI) | payer BC, SELFPAY ==
[2024-07-10 17:50] LABS: Hematocrit 37.6 % (37-47); Hemoglobin 12.1 g/dL (12.0-15.0); Mean Corp Hgb Conc 32.2 g/dL (32-36); Mean Corpuscular Hgb 28.4 pg (27.0-32.0); Mean Corpuscular Volume 88.3 fL (81-99); Mean Platelet Vol. 10.7 fl (6.2-12.0); Platelet Count 304 K/mm3 (150-450); RBC Distribution Width CV 13.2 % (11.6-14.6); RBC Distribution Width SD 42.5 fl (35.1-43.9); Red Blood Count 4.26 M/mm3 (4.2-5.4); White Blood Count 7.4 K/mm3 (4.4-11.0)
[2024-07-10 18:05] LABS: Hemoglobin A1c 5.7 % (<=5.6)
[2024-07-10 18:25] LABS: ALB/GLOB Ratio 1.3 RATIO (0.9-2.4); AST(SGOT) 22 U/L (<=31); Alanine Aminotransfer ALT/SGPT 23 U/L (<=34); Albumin, Serum 3.9 g/dL (3.5-5.0); Alkaline Phosphatase 57 U/L (35-104); Anion Gap 11 (5-15); BUN 14 mg/dL (4-19); BUN/Creat Ratio 22.9 RATIO (10-20); Calcium,Total 8.9 mg/dL (7.6-11.0); Carbon Dioxide 24.9 mmol/L (21.0-32.0); Chloride 103 mmol/L (98-108); Cholesterol 204 mg/dL (<=200); EST Glomerular Filtration Rate 112 (>60); Glucose 97 mg/dL (70-99); High Density Lipoprotein 40 mg/dL; Low Density Lipoprotein Calc. 145 mg/dL; Magnesium 1.8 mg/dL (1.5-2.2); Potassium 4.3 mmol/L (3.3-5.1); Protein, Total 6.9 g/dL (5.9-8.4); Sodium Level 138 mmol/L (133-145); Total Bilirubin 0.26 mg/dL (0.00-1.30); Triglycerides 93 mg/dL; Very Low Density Lipoprotein 19 mg/dL (5-40); Vitamin D,25 Hydroxy 28.7 ng/mL (30-100); cholesterol:hdl ratio screen 5.07
[2024-07-13 14:08] LABS: HCV Quant. RNA PCR HCV Not Detected IU/mL (.)
== END | disposition home or self-care (01) ==
LOC: MTLAB 15:16
PROVIDERS: PCP Family Medicine; Referring Provider Family Medicine; Visit Provider Family Medicine
DX: E66.813 Obesity, class 3 (principal); R76.8 Other specified abnormal immunological findings in serum; E83.51 Hypocalcemia
CPT/HCPCS: 36415; 80053; 80061; 82306; 83036; 83735; 84443; 85027; 87522

== ENCOUNTER → 2024-07-24 | Outpatient (CLI) | payer BC, SELFPAY ==
--- NOTE | 2024-07-24 07:18 | BI_ITS ---
EXAM: SCREENING MAMM (CAD), BILAT DATE: 07/24/2024 CLINICAL HISTORY: F, Age 44 y/o , SCREENING No family history. BREAST CANCER RISK ASSESSMENT: Not assessed. TECHNIQUE: Bilateral screening digital breast tomosynthesis with 2D and 3D images. Computer aided detection. COMPARISON: Baseline examination. FINDINGS: TISSUE DENSITY: The breast tissue is almost entirely fatty. Bilateral Breast Mammographic Findings: No significant masses, calcifications or other abnormalities are identified. Benign-appearing bilateral axillary lymph nodes. No suspicious masses, areas of developing architectural distortion, or suspicious calcifications. There has been no significant interval change. BI/SCREENING MAMM (CAD), BILAT IMPRESSION: OVERALL FINAL ASSESSMENT: BIRADS 2 BENIGN FINDING RECOMMENDATION: Routine annual follow-up in 1 Year A letter with findings and recommendations will be mailed to the patient. Reading Location: [id number]
== END | disposition home or self-care (01) ==
LOC: OPBI 07:17
PROVIDERS: PCP Family Medicine; Referring Provider Family Medicine; Visit Provider Family Medicine
DX: Z12.31 Encounter for screening mammogram for malignant neoplasm of breast (principal)
CPT/HCPCS: 77067

== ENCOUNTER 2024-08-27 23:16 | Emergency (ER) | payer BC, SELFPAY ==
[2024-08-27 23:17] VITALS: BP 131/79; PULSE 137; RESP 25; TEMP 36.1; O2SAT 99; BMI 48.0
--- NOTE | 2024-08-27 23:19 | ED.RN ---
UNABLE TO OBTAIN ORAL TEMP, PT GAGGING WITH EACH ATTEMPT.
--- NOTE | 2024-08-27 23:48 | EDS_ITS ---
HPI History of Present Illness Chief Complaint: Nausea/Vomiting/Diarrhea Narrative Narrative: Chief complaint and HPI: Nausea, vomiting, diarrhea. Patient states 2 days ago she developed nonbilious, nonbloody emesis with nausea. States today she developed nonbloody diarrhea. States it is not dark in color. Patient states she takes Zepbound but has been on it for 2 months. She denies any fever, chills, shortness of breath, URI symptoms, chest pain, dysuria, hematuria. Denies possibility of . Patient states she has some diffuse generalized abdominal pain. Associated symptom is decreased p.o. intake. Review of systems: See HPI Medications: As listed on the chart Allergies: As listed on the chart PFSH: Per chart Vital signs: As listed on the chart. Reviewed. Physical exam: Gen: A&O x3, NAD Head: Normocephalic, atraumatic Eyes: No sclera icterus, conjunctiva clear ENT: Dry mucous membranes Neck: Trachea midline, No JVD CV: Tachycardic, regular rhythm, no murmurs, no peripheral edema Resp: Lungs CTA BL, no w/r/c GI: Abd soft, non-distended, non-tender, no r/r/g : No CVA tenderness Musc: Full ROM, no deformity Skin: Warm, dry Neuro: Alert, oriented, grossly intact, sensation intact Psych: Cooperative, appropriate mood and affect [facility] Medical History Cellulitis of right forearm COVID Depression Obesity Home Medications ?Medication ?Instructions ?Recorded ?Last Taken ?Type bupropion HCl 150 mg tablet,12 hr 150 mg PO DAILY [facility] 01/31/19 09/13/20 History sustained-release Allergy/AdvReac Type Severity Reaction Status Date / Time hops AdvReac Other Verified 08/27/24 23:17 Social History Smoking Status: Former smoker EXAM Physical Exam Const Vital Signs: 08/27/24 23:17 Temperature 96.9 F L Temperature Source Temporal Pulse Rate 137 H Respiratory Rate 25 H Blood Pressure 131/79 H Blood Pressure Mean 96 Pulse Ox 99 Oxygen Delivery Method Room Air MDM MDM MDM Narrative Medical decision making narrative: 44-year-old female with no significant past medical history except for Zepbound use for weight loss presents for evaluation of nausea, vomiting, diarrhea. Onset 2 days. Associated symptom is mild abdominal pain. Differential diagnosis includes but is not limited to viral illness, electrolyte abnormality, dehydration, UTI suspect less likely intra-abdominal pathology given physical exam. NS bolus, Zofran ordered for symptoms. Laboratory workup ordered. I do not think any imaging is needed at this time such as CT abdomen pelvis. CBC without leukocytosis or anemia. CMP unremarkable without significant electrolyte abnormality, NATHAN. No transaminitis. Lipase unremarkable. Urine is positive for ketones which is consistent with mild dehydration. No nitrates. Does have leuk esterase with 25-50 WBCs however this is not a clean sample with 10-25 squamous epithelial cells. Patient does have bacteria. She is not endorsing any dysuria urinary frequency. Will send for culture and not treat with antibiotics at this time. She confirmed understanding. Urine negativ e. On reevaluation, patient has not had any vomiting here in the emergency department. Her vitals have improved. Patient is stable to discharge home. Suspect viral etiology. Follow-up with PCP. Recommended liquid diet for the next 24 to 48 hours and slowly advance. Return precautions explained. Will given prescription for Zofran. She confirmed understanding. Impression: 1. Nausea vomiting 2. Diarrhea 3. Suspect viral etiology Lab Data Labs: Laboratory Results - last 24 hr 08/27/24 23:37 WBC 9.5 RBC 4.99 Hgb 14.3 Hct 43.7 MCV 87.6 MCH 28.7 MCHC 32.7 RDW Std Deviation 42.3 RDW Coeff of Fabiano 13.4 Plt Count 348 MPV 11.8 Immature Gran % (Auto) 0.300 Neut % (Auto) 65.5 Lymph % (Auto) 24.8 [place] % (Auto) 6.4 Eos % (Auto) 2.7 Baso % (Auto) 0.3 Absolute Neuts (auto) 6.2 Absolute Lymphs (auto) 2.36 Nucleated RBC % 0 Urine Color Yellow Urine Clarity Cloudy Urine pH 5.0 Ur Specific [place] 1.020 Urine Protein 100 H Urine Glucose (UA) Normal Urine Ketones 50 H Urine Occult Blood 10 H Urine Nitrite Negative Urine Bilirubin 3 H Urine Urobilinogen 4 H Ur Leukocyte Esterase 100 H Urine RBC 0 SEEN Urine WBC 25-50 SEEN Ur Squamous Epith Cells 10-25 SEEN Calcium Oxalate Crystal 2+ Urine Bacteria 2+ Urine Mucus 3+ Urine Test Negative Discharge Plan Triage Chief Complaint: Nausea/Vomiting/Diarrhea ED Provider: Bar Griffiths Dx/Rx/DC Orders Prescriptions: No Action bupropion HCl 150 MG tablet sustained-release 12 hr 150 mg PO DAILY Patient Comments: TAKE 1 TABLET BY MOUTH TWICE DAILY Primary Care Provider: Yair Riojas Referrals: Yair Riojas MD [Primary Care Provider] - Print Language: Guamanian
[2024-08-27 23:52] LABS: Red Blood Cells-Urine 0 SEEN /hpf (0-5)
[2024-08-27] MEDS: 0.9% Normal Saline (1000mL) 1,000 ML 1000 ML IV (23:53)
[2024-08-27 23:55] LABS: Color, Urine Yellow (Yellow); Glucose, Dipstick Normal (Normal); Ketone-Dipstick 50 mg/dl (Negative); Leukocyte Esterase-Dipstick 100 /ul (Negative); Nitrite-Dipstick Negative (Negative); Occult Blood-Urine 10 /ul (Negative); Protein-Dipstick 100 mg/dl (Negative); Specific Gravity, Urine 1.020 (1.002-1.030)
[2024-08-27 23:58] LABS: Urine Bilirubin Dipstick 3 mg/dL (Negative)
[2024-08-27 23:59] LABS: Internal QC Validated? YES +Cl - CLEAR BKGD; Pregnancy, Urine Negative Negative; Record Kit Lot#,Urine Preg 0000947241
--- OUTSIDE RECORDS SUMMARY | 2024-08-28 00:05 | XMS RPT_ITS | CCD ---
Author Organization [facility] Care Team Providers Care Direct Marketing Specialist Name Role Phone Stephane Riojas MD Primary Care Provider [phone] STEPHANE RIOJAS Primary Care Unavailable STEPHANE RIOJAS Primary Care Unavailable Stephane Riojas Referring Unavailable Stephane Riojas Attending Unavailable Stephane Riojas Primary Care Unavailable Stephane Riojas Referring Unavailable Stephane Riojas Attending Unavailable Stephane Riojas Primary Care Unavailable Allergies Allergy Classification Reported Allergen(s) Allergy Type Date of Onset Reaction(s) Facility (3 sources) [facility] extract Drug Allergy 03-16-2023 Other [facility] (1 source) [facility] extract Drug Allergy 03-16-2023 [facility] Repository Medications Current Medications Medication Drug Class(es) Dates Sig (Normalized) Sig (Original) amoxicillin 875 mg / clavulanate 125 mg oral tablet (2 sources) Penicillin-class Antibacterial Start: 3 End: 3 take 1 tablet by mouth twice daily amoxicillin-clavulani c acid (AUGMENTIN) 875-125 mg per tablet Take 1 tablet by mouth two times a day for 5 days. 10 tablet 0 12/15/2022 12/20/2022 Active Comment on above: Take 1 tablet by esha two times a day for 5 days. methylPREDNISolone (2 sources) Corticosteroid Start: 3 End: 3 methylPREDNISolone (MEDROL, JAKE,) 4 mg Dose-Pack Follow dosing instructions, take with food. 21 tablet 0 12/15/2022 12/21/2022 Active Comment on above: Follow dosing instru ctions, take with food. Completed/Discontinued Medications Medication Drug Class(es) Dates Sig (Normalized) Sig (Original) [id number] 200 actuat albuterol 0.09 mg/actuat metered dose inhaler (4 sources) beta2-Adrenergic Agonist Start: 04-28-2017 take 2 puff(s) by inhalation every four hours as needed for wheezing albuterol HFA (VENTOLIN HFA) 90 mcg/actuation inhaler Indications: Acute bronchitis, unspecified organism Inhale 2 Puffs as instructed every 4 hours as needed for Wheezing/Shortness of Breath. 1 Inhaler 0 04/28/2017 Active Comment on above: Inhale 2 Puffs as in structed every 4 hours as needed for Wheezing/Shortness of Breath. azithromycin 250 mg oral tablet (4 sources) Macrolide Antimicrobial Start: 04-28-2017 azithromycin (ZITHROMAX) 250 mg tablet Indications: Acute bronchitis, unspecified organism Take 2 tablets today then one tablet daily for 4 days. 6 tablet 0 04/28/2017 Active Comment on above: Take 2 tablets today then one tablet daily for 4 days. 12 hr buPROPion hydrochloride 150 mg extended release oral tablet (7 sources) Aminoketone Start: 09-14-2022 take 1 tablet by mouth twice daily buPROPion SR (ZYBAN SR; WELLBUTRIN SR) 150 mg 12 hr tablet Take 1 (one) Tablet by mouth two times daily 0 09/14/2022 Active Start: 01-31-2019 take 1 tablet by esha once daily Bupropion Hcl 150 MG tablet sustained-release 12 hr Active 150 mg PO DAILY January 31, 2019 1:00am Comment on above: Take 1 (one) Tablet by mouth two times daily dicyclomine hydrochloride 10 mg oral capsule (3 sources) Anticholinergic Start: End: take 2 capsules by mouth every four to six hours as needed for pain Dicyclomine 10 MG capsule Discontinued 20 mg PO . Q4-6H as needed for abdominal pain January 31, 2019 4:04am September 13, 2020 11:52am Start: 01-31-2019 End: 09-13-2020 take 20 mg by mouth every four to six hours Dicyclomine Discontinued 20 MG PO . Q4-6H January 31, 2019 3:04am September 13, 2020 10:52am naltrexone hydrochloride 50 mg oral tablet (3 sources) Opioid Antagonist Start: 01-31-2019 End: 09-13-2020 take 1 tablet by mouth twice daily Naltrexone 50 MG tablet Discontinued 25 mg PO TWICE A DAY January 31, 2019 1:00am September 13, 2020 11:52am Start: 01-31-2019 End: 09-13-2020 take 25 mg by mouth twice daily Naltrexone Discontinued 25 MG PO TWICE A DAY January 31, 2019 12:00am September 13, 2020 10:52am omeprazole 40 mg delayed release oral capsule (3 sources) Proton Pump Inhibitor Start: 01-31-2019 End: 09-13-2020 Omeprazole 40 MG capsule,delayed release(DR/EC) Discontinued 1 NMA PO DAILY January 31, 2019 1:00am September 13, 2020 11:52am promethazine hydrochloride 25 mg oral tablet (3 sources) Phenothiazine Start: 01-31-2019 End: 09-13-2020 take 1 tablet by mouth every six hours as needed for nausea Promethazine 25 MG tablet Discontinued 25 mg PO EVERY 6 HOURS NEEDED as needed for Nausea January 31, 2019 1:00am September 13, 2020 11:52am Problems Problem Classification Problem Date Documented Da te Episodic/Chronic Abdominal pain (3 sources) Abdominal pain - cause unknown; Translations: [Upper abdominal pain, unspecified] 02-01-2019 Episodic Anxiety disorders (3 sources) Obsessive-compulsiv e disorder; Translations: [Obsessive-compulsi ve disorder, unspecified] 01-30-2019 Chronic Genitourinary symptoms and ill-defined conditions (2 sources) Increased frequency of urination; Translations: [Frequency of micturition] 01-24-2023 Episodic Mood disorders (3 sources) Depressive disorder; Translations: [Depression] 09-13-2020 Chronic Other nutritional; endocrine; and metabolic disorders (3 sources) Obesity; Translations: [Obesity, unspecified] 09-13-2020 Chronic Other screening for suspected conditions (not mental disorders or infectious disease) (1 source) Encounter for screening mammogram for malignant neoplasm of breast; Translations: [Encounter for screening mammogram for malignant neoplasm of breast] Onset: 07-29-2024 Episodic Other skin disorders (3 sources) Facial swelling ; Translations: [Localized swelling, mass and lump, head] 03-16-2023 Episodic Other upper respiratory infections (1 source) Chronic sinusitis, unspecified; Translations: [Unspecified sinusitis (chronic)] 12-15-2022 Chronic Other upper respiratory infections (1 source) Acute upper respiratory infection; Translations: [Acute upper respiratory infection, unspecified] 01-24-2023 Episodic Screening and history of mental health and substance abuse codes (3 sources) H/O: depression; Translations: [Personal history of other mental and behavioral disorders] 03-16-2023 Episodic Skin and subcutaneous tissue infections (3 sources) Cellulitis of right forearm; Translations: [Cellulitis of right upper limb] 01-31-2021 Episodic Unclassified (1 source) Obesity, class 3; Translations: [Obesity, class 3] Onset: 07-16-2024 Viral infection (3 sources) Disease caused by 2019-nCoV; Translations: [COVID-19] 09-13-2020 Episodic Results Test Name Value Interpretation Reference Range Facility Breast imaging reportOrdered By: Michael Garcia on 07-24-2024 Study report [facility] Imaging Services [address] [place] [address] SCREENING MAMM (CAD), BILAT MR#: [id number] Acct: [id number] Name: LUIS CROOK Rep #: [id number] : 1980 F 44 From: Anam Garcia MD PCP: Dr. Stephane Riojas MD Status: [facility] Study:SCREENING MAMM (CAD), BILAT Date of Exa m: 07/24/24 Exam# [id number] Ordering Dr: Oz Riojas MD EXAM: SCREENING MAMM (CAD), BILAT DATE: 07/24/2024 CLINICAL HISTORY: F, Age 44 y/o , SCREENING No family history. BREAST CANCER RISK ASSESSMENT: Not assessed. TECHNIQUE: Bilateral screening digital breast tomosynthesis with 2D and 3D images. Computeraided detection. COMPARISON: Baseline examination. FINDINGS: TISSUE DENSITY: The breast tissue is almost entirely fatty. Bilateral Breast Mammographic Findings: No significant masses, calcifications or other abnormalities are identified. Benign-appearing bilateral axillary lymph nodes. No suspicious masses, areas of developing architectural distortion, or suspicious calcifications. There has been no significant interval change. BI/SCREENING MAMM (CAD), BILAT IMPRESSION: OVERALL FINAL ASSESSMENT: BIRADS 2 BENIGN FINDING RECOMMENDATION: Routine annual follow-up in 1 Year A letter with findings and recommendations will be mailed to the patient. Reading Location: [id number] CC: Dr. Stephane Riojas MD ~ Tenant Selector: Signed [facility] SCREENING MAMM (CAD), BILATo n 07-24-2024 SCREENING MAMM (CAD), BILAT [facility] Imaging Services [address] [place] [address] SCREENING MAMM (CAD), BILAT MR#: [id number] Acct: [id number] Name: LUIS CROOK Rep #: [id number] : 1980 F 44 From: Michael harden MD PCP: Dr. Stephane Riojas MD Status: [facility] Study: SCREENING MAMM (CAD), BILAT Date of Exam: 06/27 11/20 Exam# [id number] Ordering Dr: Stephane Riojas MD EXAM: SCREENING MAMM (CAD), BILAT DATE: 07/24/2024 CLINICAL HISTORY: F, Age 44 y/o , SCREENING No family history. BREAST CANCER RISK ASSESSMENT: Not assessed. TECHNIQUE: Bilateral screening digital breast tomosynthesis with 2D and 3D images. Computer aided detection. COMPARISON: Baseline examination. FINDINGS: TISSUE DENSITY: The breast tissue is almost entirely fatty. Bilateral Breast Mammographic Findings: No significant masses, calcifications or other abnormalities are identified. Benign-appearing bilateral axillary lymph nodes. No suspicious masses, areas of developing architectural distortion, or suspicious calcifications. There has been no significant interval change. BI/SCREENING MAMM (CAD), BILAT IMPRESSION: OVERALL FINAL ASSESSMENT: BIRADS 2 BENIGN FINDING RECOMMENDATION: Routine annual follow-up in 1 Year A letter with findings and recommendations will be mailed to the patient. Reading Location: LOVELY CC: Dr. Stephane Riojas MD Tenant Selector: Signed Normal [facility] Hepatitis C,RNA PCR Viral Lo fresh foods clerk 07-13-2024 HCV log 10 TNP Normal . [facility] Comment on above: Performed By: #### L 7000.7000, L506.1001 #### [facility] [address] [facility] [address], [place], [address] HCV QT RNA PCR Not detected Normal . [facility] Comment on above: Performed By: #### L 7000.7000, L506.1001 #### [facility] [address] [place], [address] TEST INFO: Comment Normal . [facility] Comment on above: Result Comment: The quantitative range of this assay is 15 IU/mL to 100 million IU/mL. Performed at: [facility] [address] [id number] Malt Loader: Ty Anand MD, Phone: [phone] Performed By: #### L 7000.7000, L506.1001 #### [facility] [address] [place], [place], [id number] Anion gap in Serum or Plasma Ordered By: Stephane Riojas on 07-10-2024 Anion gap [Moles/Vol] 11 mmol/L 07-10 [facility] BUN/creatinine ratioOrdered By: Stephane Riojas on 07-10-2024 Urea nitrogen/Creatinine [Mass ratio] 22.9 mg/mg High 12-15 [facility] Bilirubin, totalOrdered By: Stephane Riojas on 07-10-2024 Bilirubin [Mass/Vol] 0.26 mg/dL 0.00-1.30 [facility] CBC-Complete Blood Cnt No Di ffon 07-10-2024 Erythrocyte distribution width (RBC) [Ratio] 13.2 % Normal 11.6-14.6 [facility] Comment on above: Order Comment: Order Date: 04/11/24 Order Info: [id number] - CBC Performed By: #### L 501.9520, L501.9985, L500.4050, L501.5200, L100.0500, L500.4100 #### [facility] [address] [place], [address] Hematocrit (Bld) [Volume fraction] 37.6 % Normal 37-47 [facility] Comment on above: Order Comment: Order Date: 04/11/24 Order Info: [id number] - CBC Performed By: #### L 501.9520, L501.9985, L500.4050, L501.5200, L100.0500, L500.4100 #### [facility] [address] [place], [address] Hemoglobin (Bld) [Mass/Vol] 12.1 g/dL Normal 12.0-15.0 [facility] Comment on above: Order Comment: Order Date: 04/11/24 Order Info: [id number] - CBC Performed By: #### L 501.9520, L501.9985, L500.4050, L501.5200, L100.0500, L500.4100 #### [facility] [address] [place], [address] MCH (RBC) [Entitic mass] 28.4 pg Normal 27.0-32.0 [facility] Comment on above: Order Comment: Order Date: 04/11/24 Order Info: [id number] - CBC Performed By: #### L 501.9520, L501.9985, L500.4050, L501.5200, L100.0500, L500.4100 #### [facility] [address] [place], [address] MCHC (RBC) [Mass/Vol] 32.2 g/dL Normal 32-36 [facility] Comment on above: Order Comment: Order Date: 04/11/24 Order Info: [id number] - CBC Performed By: #### L 501.9520, L501.9985, L500.4050, L501.5200, L100.0500, L500.4100 #### [facility] [address] [place], [address] MCV (RBC) [Entitic vol] 88.3 fL Normal 81-99 [facility] Comment on above: Order Comment: Order Date: 04/11/24 Order Info: [id number] - CBC Performed By: #### L 501.9520, L501.9985, L500.4050, L501.5200, L100.0500, L500.4100 #### [facility] [address] [place], [address] Platelet mean volume (Bld) [Entitic vol] 10.7 fL Normal 6.2-12.0 [facility] Comment on above: Order Comment: Order Date: 04/11/24 Order Info: [id number] - CBC Performed By: #### L 501.9520, L501.9985, L500.4050, L501.5200, L100.0500, L500.4100 #### [facility] [address] [place], [address] Platelets (Bld) [#/Vol] 304 10*3/uL Normal 150-450 [facility] Comment on above: Order Comment: Order Date: 04/11/24 Order Info: [id number] - CBC Performed By: #### L 501.9520, L501.9985, L500.4050, L501.5200, L100.0500, L500.4100 #### [facility] [address] [place], [address] RBC (Bld) [#/Vol] 4.26 10*6/uL Normal 4.2-5.4 [facility] Comment on above: Order Comment: Order Date: 04/11/24 Order Info: [id number] - CBC Performed By: #### L 501.9520, L501.9985, L500.4050, L501.5200, L100.0500, L500.4100 #### [facility] [address] [place], [address] RDW SD 42.5 fl Normal 35.1-43.9 [facility] Comment on above: Order Comment: Order Date: 04/11/24 Order Info: [id number] - CBC Performed By: #### L 501.9520, L501.9985, L500.4050, L501.5200, L100.0500, L500.4100 #### [facility] [address] [place], [address] WBC (Bld) [#/Vol] 7.4 10*3/uL Normal 4.4-11.0 [facility] Comment on above: Order Comment: Order Date: 04/11/24 Order Info: [id number] - CBC Performed By: #### L 501.9520, L501.9985, L500.4050, L501.5200, L100.0500, L500.4100 #### [facility] [address] [place], [address] Calculated very low density lipoprotein (VLDL) cholesterol measurementOrdered By: Stephane Riojas on 07-10-2024 Calculated very low density lipoprotein (VLDL) cholesterol measurement 19 mg/dL 5-40 [facility] Carbon dioxide, total [Moles /volume] in Central venous bloodOrdered By: Stephane Riojas on 07-10-2024 CO2 [Moles/Vol] 24.9 mmol/L 21.0-32.0 [facility] Chloride assayOrdered By: Oz Riojas on 07-10-2024 Chloride [Moles/Vol] 103 mmol/L 98-108 [facility] Comprehensive Metabolic Prof ilon 07-10-2024 Albumin [Mass/Vol] 3.9 g/dL Normal 3.5-5.0 [facility] Comment on above: Order Comment: Order Date: 04/11/24 Order Info: [id number] - CMP Order Info: [id number] - LIPID Order Info: [id number] - MG Order Info: [id number] - TSH Performed By: #### L 501.9520, L501.9985, L500.4050, L501.5200, L100.0500, L500.4100 #### [facility] [address] [place], [address] Albumin/Globulin [Mass ratio] 1.3 {ratio} Normal 0.9-2.4 [facility] Comment on above: Order Comment: Order Date: 04/11/24 Order Info: [id number] - CMP Order Info: [id number] - LIPID Order Info: [id number] - MG Order Info: [id number] - TSH Performed By: #### L 501.9520, L501.9985, L500.4050, L501.5200, L100.0500, L500.4100 #### [facility] [address] [place], [address] ALK PHOS 57 U/L Normal 35-104 [facility] Comment on above: Order Comment: Order Date: 04/11/24 Order Info: [id number] - CMP Order Info: [id number] - LIPID Order Info: [id number] - MG Order Info: 3 - TSH Performed By: #### L 501.9520, L501.9985, L500.4050, L501.5200, L100.0500, L500.4100 #### [facility] [address] [place], [address] ALT [Catalytic activity/Vol] 23 U/L Normal <=34 [facility] Comment on above: Order Comment: Order Date: 04/11/24 Order Info: [id number] - CMP Order Info: [id number] - LIPID Order Info: [id number] - MG Order Info: [id number] - TSH Performed By: #### L 501.9520, L501.9985, L500.4050, L501.5200, L100.0500, L500.4100 #### [facility] [address] [place], [address] AST [Catalytic activity/Vol] 22 U/L Normal <=31 [facility] Comment on above: Order Comment: Order Date: 04/11/24 Order Info: [id number] - CMP Order Info: [id number] - LIPID Order Info: [id number] - MG Order Info: 3 - TSH Performed By: #### L 501.9520, L501.9985, L500.4050, L501.5200, L100.0500, L500.4100 #### [facility] [address] [place], [address] Bilirubin [Mass/Vol] 0.26 mg/dL Normal 0.00-1.30 [facility] Comment on above: Order Comment: Order Date: 04/11/24 Order Info: [id number] - CMP Order Info: [id number] - LIPID Order Info: [id number] - MG Order Info: [id number] - TSH Performed By: #### L 501.9520, L501.9985, L500.4050, L501.5200, L100.0500, L500.4100 #### [facility] [address] [place], [address] BUN/CRE 22.9 RATIO High 10-20 [facility] Comment on above: Order Comment: Order Date: 04/11/24 Order Info: [id number] - CMP Order Info: [id number] - LIPID Order Info: [id number] - MG Order Info: [id number] - TSH Performed By: #### L 501.9520, L501.9985, L500.4050, L501.5200, L100.0500, L500.4100 #### [facility] [address] [place], [place], [address] [phone] Calcium [Mass/Vol] 8.9 mg/dL Normal 7.6-11.0 [facility] Comment on above: Order Comment: Order Date: 04/11/24 Order Info: [id number] - CMP Order Info: [id number] - LIPID Order Info: [id number] - MG Order Info: [id number] - TSH Performed By: #### L 501.9520, L501.9985, L500.4050, L501.5200, L100.0500, L500.4100 #### [facility] [address] [place], [address] Chloride [Moles/Vol] 103 mmol/L Normal 98-108 [facility] Comment on above: Order Comment: Order Date: 04/11/24 Order Info: [id number] - CMP Order Info: [id number] - LIPID Order Info: [id number] - MG Order Info: [id number] - TSH Performed By: #### L 501.9520, L501.9985, L500.4050, L501.5200, L100.0500, L500.4100 #### [facility] [address] [place], [address] CO2 [Moles/Vol] 24.9 mmol/L Normal 21.0-32.0 [facility] Comment on above: Order Comment: Order Date: 04/11/24 Order Info: 86-1 - CMP Order Info: [id number] - LIPID Order Info: [id number] - MG Order Info: [id number] - TSH Performed By: #### L 501.9520, L501.9985, L500.4050, L501.5200, L100.0500, L500.4100 #### [facility] [address] [place], [place], [address] Creatinine [Mass/Vol] 0.60 mg/dL Low 0.70-1.20 [facility] Comment on above: Order Comment: Order Date: 04/11/24 Order Info: 86-1 - CMP Order Info: [id number] - LIPID Order Info: [id number] - MG Order Info: [id number] - TSH Performed By: #### L 501.9520, L501.9985, L500.4050, L501.5200, L100.0500, L500.4100 #### [facility] [address] [place], [address] GAP 11 Normal 5-15 [facility] Comment on above: Order Comment: Order Date: 04/11/24 Order Info: [id number] - CMP Order Info: [id number] - LIPID Order Info: [id number] - MG Order Info: [id number] - TSH Performed By: #### L 501.9520, L501.9985, L500.4050, L501.5200, L100.0500, L500.4100 #### [facility] [address] [facility] [place], [address] GFR/1.73 sq M.predicted among non-blacks MDRD (S/P/Bld) [Vol rate/Area] 112 mL/min/{1.73_m2} Normal >60 [facility] Comment on above: Order Comment: Order Date: 04/11/24 Order Info: [id number] - CMP Order Info: [id number] - LIPID Order Info: [id number] - MG Order Info: 3 - TSH Result Comment: mL/m in/1.73m2 CKD-EPI Creatinine Equation (2020) Performed By: #### L 501.9520, L501.9985, L500.4050, L501.5200, L100.0500, L500.4100 #### [facility] [address] [facility] [place], [address] Globulin (S) [Mass/Vol] 3.0 g/dL Normal 2.2-4.2 [facility] Comment on above: Order Comment: Order Date: 04/11/24 Order Info: [id number] - CMP Order Info: [id number] - LIPID Order Info: [id number] - MG Order Info: 3 - TSH Performed By: #### L 501.9520, L501.9985, L500.4050, L501.5200, L100.0500, L500.4100 #### [facility] [address] [place], [address] Glucose [Mass/Vol] 97 mg/dL Normal 70-99 [facility] Comment on above: Order Comment: Order Date: 04/11/24 Order Info: [id number] - CMP Order Info: [id number] - LIPID Order Info: [id number] - MG Order Info: 3 - TSH Performed By: #### L 501.9520, L501.9985, L500.4050, L501.5200, L100.0500, L500.4100 #### [facility] [address] [place], [address] Potassium [Moles/Vol] 4.3 mmol/L Normal 3.3-5.1 [facility] Comment on above: Order Comment: Order Date: 04/11/24 Order Info: [id number] - CMP Order Info: [id number] - LIPID Order Info: [id number] - MG Order Info: [id number] - TSH Performed By: #### L 501.9520, L501.9985, L500.4050, L501.5200, L100.0500, L500.4100 #### [facility] [address] [place], [address] Sodium [Moles/Vol] 138 mmol/L Normal 133-145 [facility] Comment on above: Order Comment: Order Date: 04/11/24 Order Info: 07- - CMP Order Info: [id number] - LIPID Order Info: [id number] - MG Order Info: 3016-3 - TSH Performed By: #### L 501.9520, L501.9985, L500.4050, L501.5200, L100.0500, L500.4100 #### [facility] [address] [place], [address] T PROT 6.9 g/dL Normal 5.9-8.4 [facility] Comment on above: Order Comment: Order Date: 04/11/24 Order Info: [id number] - CMP Order Info: [id number] - LIPID Order Info: [id number] - MG Order Info: [id number] - TSH Performed By: #### L 501.9520, L501.9985, L500.4050, L501.5200, L100.0500, L500.4100 #### [facility] [address] [place], [address] Urea nitrogen [Mass/Vol] 14 mg/dL Normal 4-19 [facility] Comment on above: Order Comment: Order Date: 04/11/24 Order Info: [id number] - CMP Order Info: [id number] - LIPID Order Info: [id number] - MG Order Info: [id number] - TSH Performed By: #### L 501.9520, L501.9985, L500.4050, L501.5200, L100.0500, L500.4100 #### [facility] [place], [address] Erythrocyte distribution wid th ratioOrdered By: Stephane Riojas on 07-10-2024 Erythrocyte distribution width (RBC) [Ratio] 13.2 % 11.6-14.6 [facility] Erythrocyte distribution wid th standard deviationOrdered By: Stephane Riojas on 07-10-2024 Erythrocyte distribution width (RBC) [Ratio] 42.5 fl 35.1-43.9 [facility] Glomerular filtration rate ( GFR) estimation/1.73 sq m using serum, plasma, or whole bOrdered By: Stephane Riojas on 07-10-2024 GFR/1.73 sq M.predicted among non-blacks MDRD (S/P/Bld) [Vol rate/Area] 112 mL/min/{1.73_m2} >60 [facility] Comment on above: mL/min/1.73m2 CKD-EP I Creatinine Equation (2020) Hematocrit Auto (Bld) [Volum e fraction]Ordered By: Stephane Riojas on 07-10-2024 Hematocrit (Bld) [Volume fraction] 37.6 % 37-47 [facility] Hemoglobin A1con 07-10-2024 HbA1c (Bld) [Mass fraction] 5.7 % Normal <=5.6 [facility] Comment on above: Order Comment: Order Date: 04/11/24 Order Info: [id number] - A1C Result Comment: Norm al < 5.7 % Prediabetic 5.7 - 6.4 % Diabetic >or= 6.5 % Please note range changes. Performed By: #### L 501.9520, L501.9985, L500.4050, L501.5200, L100.0500, L500.4100 #### [facility] [address] [place], [place], [address] Hemoglobin A1c percentageOrd ered By: Stephane Riojas on 07-10-2024 HbA1c (Bld) [Mass fraction] 5.7 % <5.7 [facility] Comment on above: Normal < 5.7 % Predi abetic 5.7 - 6.4 % Diabetic >or= 6.5 % Please note range changes. Hemoglobin measurementOrdere d By: Stephane Riojas on 07-10-2024 Hemoglobin (Bld) [Mass/Vol] 12.1 g/dL 12.0-15.0 [facility] LDL calc ser/plasOrdered By: Stephane Riojas on 07-10-2024 Cholesterol in LDL [Mass/Vol] 145 mg/dL [facility] Comment on above: Ornatxlkin=972-155 m g/dL & Higher Uzjo=496 mg/dL or greater Laboratory - Chemistry and C hemistry - challengeOrdered By: Stephane Riojas on 07-10-2024 AST [Catalytic activity/Vol] 22 U/L <32 [facility] Lipid Profileon 07-10-2024 CHOL:HDL 5.07 Normal [facility] Comment on above: Order Comment: Order Date: 04/11/24 Order Info: [id number] - CMP Order Info: [id number] - LIPID Order Info: [id number] - MG Order Info: [id number] - TSH Performed By: #### L 501.9520, L501.9985, L500.4050, L501.5200, L100.0500, L500.4100 #### [facility] [address] [place], [address] Cholesterol [Mass/Vol] 204 mg/dL High <=200 [facility] Comment on above: Order Comment: Order Date: 04/11/24 Order Info: [id number] - CMP Order Info: [id number] - LIPID Order Info: [id number] - MG Order Info: 3016-3 - TSH Result Comment: Chol esterol level, Desirable <200 mg/dL Borderline high cholesterol 200-239 mg/dL High cholesterol >=240 mg/dL Recommendations of the NCEP Adult Treatment Panel for the following risk-cutoff thresholds for the [place] population. Performed By: #### L 501.9520, L501.9985, L500.4050, L501.5200, L100.0500, L500.4100 #### [facility] [address] [place], [address] Cholesterol in HDL [Mass/Vol] 40 mg/dL Normal [facility] Comment on above: Order Comment: Order Date: 04/11/24 Order Info: [id number] - CMP Order Info: [id number] - LIPID Order Info: [id number] - MG Order Info: 3015-3 - TSH Result Comment: Kristin onal Cholesterol Education Program (NCEP) guidelines: <40 mg/dL: Low HDL-cholesterol (major risk factor for CHD) >= 60 mg/dL: High HDL-cholesterol (negative risk factor for CHD) HDL-cholesterol is affected by a number of factors, e.g. smoking, exercise, hormones, sex and age. Performed By: #### L 501.9520, L501.9985, L500.4050, L501.5200, L100.0500, L500.4100 #### [facility] [address], [address] Cholesterol in LDL [Mass/Vol] 145 mg/dL Normal [facility] Comment on above: Order Comment: Order Date: 04/11/24 Order Info: [id number] - CMP Order Info: [id number] - LIPID Order Info: [id number] - MG Order Info: 6-3 - TSH Result Comment: Bord htfppp=702-634 mg/dL Higher Nfol=585 mg/dL or greater Performed By: #### L 501.9520, L501.9985, L500.4050, L501.5200, L100.0500, L500.4100 #### [facility] [address] [place], [address] Cholesterol in VLDL [Mass/Vol] 19 mg/dL Normal 5-40 [facility] Comment on above: Order Comment: Order Date: 04/11/24 Order Info: [id number] - CMP Order Info: - LIPID Order Info: [id number] - MG Order Info: 3 - TSH Performed By: #### L 501.9520, L501.9985, L500.4050, L501.5200, L100.0500, L500.4100 #### [facility] [address] [place], [place], [address] Triglyceride [Mass/Vol] 93 mg/dL Normal [facility] Comment on above: Order Comment: Order Date: 04/11/24 Order Info: [id number] - CMP Order Info: - LIPID Order Info: [id number] - MG Order Info: [id number] - TSH Result Comment: The drugs N-Acetylcysteine and Metamizole may falsely depress this assay. Normal range: <150 mg/dL Borderline High: 150-199 mg/dL High: 200-499 mg/dL Very High: >500 mg/dL Performed By: #### L 501.9520, L501.9985, L500.4050, L501.5200, L100.0500, L500.4100 #### [facility] [address] [place], [place], [address] MCV (mean corpuscular volume ) determinationOrdered By: Stephane Riojas on 07-10-2024 MCV (RBC) [Entitic vol] 88.3 fL 81-99 [facility] Magnesiumon 07-10-2024 Magnesium [Mass/Vol] 1.8 mg/dL Normal 1.5-2.2 [facility] Comment on above: Order Comment: Order Date: 04/11/24 Order Info: 86 - CMP Order Info: - LIPID Order Info: [id number] - MG Order Info: [id number] - TSH Performed By: #### L 501.9520, L501.9985, L500.4050, L501.5200, L100.0500, L500.4100 #### [facility] [address] [place], [address] Magnesium measurement (mass/ volume)Ordered By: Stephane Riojas on 07-10-2024 Magnesium (Unsp spec) [Mass/Vol] 1.8 mg/dL 1.5-2.2 [facility] Mean corpuscular hemoglobin (MCH) determinationOrdered By: Stephane Riojas on 07-10-2024 MCH (RBC) [Entitic mass] 28.4 pg 27.0-32.0 [facility] Mean corpuscular hemoglobin concentration (MCHC) determinationOrdered By: Stephane Riojas on 07-10-2024 MCHC (RBC) [Mass/Vol] 32.2 g/dL 32-36 [facility] Mean platelet volume determi nationOrdered By: Stephane Riojas on 07-10-2024 Platelet mean volume (Bld) [Entitic vol] 10.7 fL 6.2-12.0 [facility] No Panel InformationOrdered By: Stephane Riojas on 07-10-2024 Addendum Document Comment . [facility] Comment on above: The quantitative ran ge of this assay is 15 IU/mL to 100million IU/mL.Performed at: [facility] [id number] Director: Ty Anand MD, Phone: [phone] Platelet countOrdered By: Oz Riojas on 07-10-2024 Platelets (Bld) [#/Vol] 304 10*3/uL 150-450 [facility] Potassium measurement (mass/ volume)Ordered By: Stephane Riojas on 07-10-2024 Potassium (Unsp spec) [Mass/Vol] 4.3 mmol/L 3.3-5.1 [facility] RBC Auto (Bld) [#/Vol]Ordere d By: Stephane Riojas on 07-10-2024 RBC (Bld) [#/Vol] 4.26 10*6/uL 4.2-5.4 [facility] Screening total cholesterol/ high density lipoprotein (HDL) cholesterol ratioOrdered By: Stephane Riojas on 07-10-2024 Cholesterol.total/Choles terol in HDL [Mass ratio] 5.07 {ratio} [facility] Serum creatinine measurement (mass/volume)Ordered By: Stephane Riojas on 07-10-2024 Creatinine [Mass/Vol] 0.60 mg/dL Low 0.70-1.20 [facility] Serum globulin measurementOr dered By: Stephane Riojas on 07-10-2024 Globulin (S) [Mass/Vol] 3.0 g/dL 2.2-4.2 [facility] Serum glucose measurement (m ass/volume)Ordered By: Stephane Riojas on 07-10-2024 Glucose [Mass/Vol] 97 mg/dL 70-99 [facility] Serum or plasma alanine manuel otransferase (ALT) measurementOrdered By: Stephane Riojas on 07-10-2024 ALT [Catalytic activity/Vol] 23 U/L <35 [facility] Serum or plasma albumin aida urement (mass/volume)Ordered By: Stephane Riojas on 07-10-2024 Albumin [Mass/Vol] 3.9 g/dL 3.5-5.0 [facility] Serum or plasma albumin/glob ulin mass ratioOrdered By: Stephane Riojas on 07-10-2024 Albumin/Globulin [Mass ratio] 1.3 {ratio} 0.9-2.4 [facility] Serum or plasma alkaline serge sphatase measurementOrdered By: Stephane Riojas on 07-10-2024 ALP [Catalytic activity/Vol] 57 U/L 35-104 [facility] Serum or plasma calcium aida urement (mass/volume)Ordered By: Stephane Riojas on 07-10-2024 Calcium [Mass/Vol] 8.9 mg/dL 7.6-11.0 [facility] Serum or plasma cholesterol in HDL measurement (mass/volume)Ordered By: Stephane Riojas on 07-10-2024 Cholesterol in HDL [Mass/Vol] 40 mg/dL >40 [facility] Comment on above: National Cholesterol Education Program (NCEP) guidelines:<40 mg/dL: Low HDL-cholesterol (major risk factor for CHD)>= 60 mg/dL: High HDL-cholesterol (negative risk factor for CHD)HDL-cholesterol is affected by a number of factors, e.g. smoking, exercise, hormones, sex and age. Serum or plasma cholesterol measurement (mass/volume)Ordered By: Stephane Riojas on 07-10-2024 Cholesterol [Mass/Vol] 204 mg/dL High <201 [facility] Comment on above: Cholesterol level, D esirable <200 mg/dLBorderline high cholesterol 200-239 mg/dLHigh cholesterol >=240 mg/dLRecommendations of the NCEP Adult Treatment Panel for the following risk-cutoff thresholds for the [place] population. Serum or plasma hepatitis C virus RNA measurement by probe and target amplification mOrdered By: Stephane Riojas on 07-10-2024 HCV RNA SEDRICK+probe Qn Not detected . [facility] Serum or plasma urea nitroge n measurement (mass/volume)Ordered By: Stephane Riojas on 07-10-2024 Urea nitrogen [Mass/Vol] 14 mg/dL 4-19 [facility] Sodium levelOrdered By: Stephane Riojas on 07-10-2024 Sodium [Moles/Vol] 138 mmol/L 133-145 [facility] TSH DL <= 0.005 mIU/L QnOrde red By: Stephane Riojas on 07-10-2024 TSH Qn 2.070 uIU/mL 0.300-4.200 [facility] Thyroid Stim Hormone (TSH)on 07-10-2024 TSH 2.070 uIU/mL Normal 0.300-4.200 [facility] Comment on above: Order Comment: Order Date: 04/11/24 Order Info: [id number] - CMP Order Info: [id number] - LIPID Order Info: [id number] - MG Order Info: [id number] - TSH Performed By: #### L 501.9520, L501.9985, L500.4050, L501.5200, L100.0500, L500.4100 #### [facility] [place], [place], [id number] Total proteinOrdered By: Annette Riojas on 07-10-2024 Protein [Mass/Vol] 6.9 g/dL 5.9-8.4 [facility] Triglycerides measurementOrd ered By: Stephane Riojas on 07-10-2024 Triglyceride [Mass/Vol] 93 mg/dL <199 [facility] Comment on above: The drugs N-Acetylcy steine and Metamizole may falsely depress this assay. Normal range: <150 mg/dLBorderline High: 150-199 mg/dLHigh: 200-499 mg/dLVery High: >500 mg/dL Vitamin D,25 Hydroxyon 07-10 Vitamin D 25-OH 28.7 ng/mL Low 30-100 [facility] Comment on above: Order Comment: Order Date: 04/11/24 Order Info: [id number] - CMP Order Info: [id number] - LIPID Order Info: [id number] - MG Order Info: [id number] - TSH Result Comment: Agata min D Status Deficiency: <20 ng/mL (50nmol/L) Insufficiency: 20-30 ng/mL (50-75 nmol/L) Sufficiency: 30-100 ng/mL (75-250 nmol/L) Toxicity: >100 ng/mL (>250 nmol/L) Performed By: #### L 7000.7000, L506.1001 #### [facility] [address] [place], [address] White blood cell (WBC) count Ordered By: Stephane Riojas on 07-10-2024 WBC (Bld) [#/Vol] 7.4 10*3/uL 4.4-11.0 [facility] HPV W/GENOTYPE THIN PREPon 0 02-28-2023 HPV 16 Ag Ql (Unsp spec) Negative Normal Neg ative for HPV DNA high risk type 16 by PCR [facility] Comment on above: Order Comment: Speci men Type: FLUID SPECIMEN Ordering Facility: [facility] Address: [address] [place] [address] Performed By: #### H PVHRT #### [facility] CLIA [id number] [address] [place] [address] [place] HPV 18 Ag Ql (Unsp spec) Negative Normal Neg ative for HPV DNA high risk type 18 by PCR [facility] Comment on above: Order Comment: Speci men Type: FLUID SPECIMEN Ordering Facility: [facility] Address: [address] [place] [address] Performed By: #### H PVHRT #### [facility] CLIA [id number] [address] [place] [address] [place] HPV 31+33+35+39+45+51+52+56+ 58+59+66+68 DNA SEDRICK+probe Ql (Cvx) Negative for HPV DNA high risk types: 31,33,35,39,45,51,52 ,56,58,59,66,68 by PCR. Normal Negative for HPV DNA high risk types: 31,33,35,39,4 5,51,52,56,58 ,59,66,68 by PCR. [facility] Comment on above: Order Comment: Speci men Type: FLUID SPECIMEN Ordering Facility: [facility] Address: [address] [place] [address] Performed By: #### H PVHRT #### [facility] CLIA [id number] [address] [place] [address] [place] PAP TESTon 02-28-2023 ADEQUACY Normal [facility] Comment on above: Order Comment: Speci men Type: FLUID SPECIMEN Ordering Facility: [facility] Address: [address] [place] [address], [place] [address] Result Comment: Sati sfactory for interpretation No endocervical component Performed By: #### L [id number] #### [facility] CLIA [id number] [address] [place] [address] [place] CASE REPORT Normal [facility] Comment on above: Order Comment: Speci men Type: FLUID SPECIMEN Ordering Facility: [facility] Address: [address] [place] [address] Result Comment: Gyne cologic Cytology Report Case: [id number] Authorizing Provider: Simba Hawley NP Collected: 02/28/2023 05:00 PM Ordering Location: [facility] Received: 03/01/2023 10:00 AM [facility] First Screen: Sindhukin, Yoli, CT, ASCP Specimen: Pap Test, ThinPrep, Cervix Performed By: #### L [id number] #### [facility] CLIA [id number] [address] [id number] [place] CLINICAL HISTORY, CYTOLOGY, SALES SPECIAL AGENT Routine Exam Normal [facility] Comment on above: Order Comment: Speci men Type: FLUID SPECIMEN Ordering Facility: [facility] Address: [address] [place] [address], [place] [address] Result Comment: Intr a Uterine Device IUD REMOVAL AT APPOINTMENT Performed By: #### L [id number] #### [facility] CLIA [id number] [address] [place] [address] [place] FINAL PERFORMING LAB Normal [facility] Comment on above: Order Comment: Speci men Type: FLUID SPECIMEN Ordering Facility: [facility] Address: [address] [place] [address], [place] [address] Result Comment: Tech nical component, director toxicology screening performed at [facility], [address] [place] [address] CLIA# [id number] Diagnostic interpretation performed at [facility], [address] [place] [address] CLIA# [id number] [employer] Supervisor: Reggie Seaman M.D. Performed By: #### L [id number] #### [facility] CLIA [id number] [address] [place] [address] [place] HPV REFLEX Yes HPV Normal [facility] Comment on above: Order Comment: Speci men Type: FLUID SPECIMEN Ordering Facility: [facility] Address: [address] [place] [address], [place] [address] Performed By: #### L [id number] #### [facility] CLIA [id number] [address] [place] [address] [place] INTERPRETATION, CYTOLOGY, SALES SPECIAL AGENT Normal [facility] Comment on above: Order Comment: Speci men Type: FLUID SPECIMEN Ordering Facility: [facility] Address: [address] [place] [address], [place] [address] Result Comment: Nega tive for intraepithelial lesion or malignancy. Performed By: #### L [id number] #### [facility] CLIA [id number] [address] LMP [UNKNOWN Normal [facility] Comment on above: Order Comment: Speci men Type: FLUID SPECIMEN Ordering Facility: [facility] Address: [address] [place] [address] Performed By: #### L [id number] #### [facility] CLIA [id number] [address] PAP DISCLAIMER COMMENT The Pap Smear is a screening test for cervical cancer. False negative results occur with all screening tests, emphasizing the need for rescreening at recommended intervals, and clinical correlation. Normal [facility] Comment on above: Order Comment: Speci men Type: FLUID SPECIMEN Ordering Facility: [facility] Address: [address] [place] [address] Performed By: #### L [id number] #### [facility] CLIA [id number] [facility] [address] John 01-26-2023 STEPHANIE Telephone (EXPHUD) LUIS CROOK ([id number]) 1980 F Date Time Provider Department 01/26/23 SIMBA VILLAREAL EXPEMERSON During your visit today, we recorded the following information about you: Simba Villareal APRN.BAKE ROOM WORKER 01/26/2023 11:23 AM Signed Please inform patient that her urine culture had mixed microbe and essentially a contaminated specimen. This can occur during time of collection. I have placed a new order for urine culture. Please notify and request patient to present for new specimen. She does not need to be seen again, just a nurse visit to provide new specimen. AbdiazizAarti 01/26/2023 11:50 AM Signed Spoke to patient and she is aware that there is a new order in, but patient states she will call back in when she figures out when she is able to come in. Aarti Freed Allergies As of Date: 01/26/2023 (No Known Allergies) Date Reviewed: 01/24/2023 Reviewed by: Jude Fernández APRN.CNP - Fully Assessed Reason for Visit: Results [95] Primary Visit Diagnosis:Urinary frequency [R35.0] Order(s):URINE CULTURE [[facility]] Order #: [id number] FUTURE Prescriptions as of 01/26/2023 - buPROPion SR (ZYBAN SR; WELLBUTRIN SR) 150 mg 12 hr tablet Take 1 (one) Tablet by mouth two times daily - azithromycin (ZITHROMAX) 250 mg tablet Take 2 tablets today then one tablet daily for 4 days. - albuterol HFA (VENTOLIN HFA) 90 mcg/actuation inhaler Inhale 2 Puffs as instructed every 4 hours as needed for Wheezing/Shortness of Breath. Problem List As Of Date: 01/26/2023 (None) Encounter Status:Closed by SIMBA VILLAREAL on 01/26/23 [facility] John 01-25-2023 [facility] LUIS CR[facility] ([id number]) 1980 F Date Time Provider Department 01/25/23 JUDE FERNÁNDEZ [facility] During your visit today, we recorded the following information about you: Jude Fernández APRN.CNP 01/25/2023 9:14 AM Signed Please notify positive for covid If desires treatment follow up with primary care provider. Jason Richardson LPN 01/25/2023 3:11 PM Signed Patient given results and verbalized understanding of instructions given. Jason Richardson LPN Allergies As of Date: 01/25/2023 (No Known Allergies) Date Reviewed: 01/24/2023 Reviewed by: Jude Fernández APRN.BAKE ROOM WORKER - Fully Assessed Reason for Visit: Results [95] Prescriptions as of 01/25/2023 - buPROPion SR (ZYBAN SR; WELLBUTRIN SR) 150 mg 12 hr tablet Take 1 (one) Tablet by mouth two times daily - azithromycin (ZITHROMAX) 250 mg tablet Take 2 tablets today then one tablet daily for 4 days. - albuterol HFA (VENTOLIN HFA) 90 mcg/actuation inhaler Inhale 2 Puffs as instructed every 4 hours as needed for Wheezing/Shortness of Breath. Problem List As Of Date: 01/25/2023 (None) Encounter Status:Closed by JASON RICHARDSON on 01/25/23 Normal [facility] Bacteria Ur Culton 3 Bacteria identified Cx Nom (U) ORGANISM ID: 1 50,000-<100,000 CFU/ml Mixed microbiota No further workup. Mixed microbiota can be due to???urine???contami nation with skin bacteria at time of collection or presence of a long-term urinary catheter. If a new culture is needed, please consider re-education of the patient on proper midstream collection technique or straight catheterization for???urine???collec tion. Normal [facility] Comment on above: Performed By: #### 6 30-4 #### [facility] CLIA [id number] [address] [place] [address] [place] CNOVon 01-24-2023 CNOV Office Visit ([facility]) LUIS CROOK ([id number]) 1980 F Date Time Provider Department 01/24/23 9:15 AM PRADEE[facility]ISIJUDE [facility] During your visit today, we recorded the following information about you: Temperature Pulse Respiration Blood pressure 99.7 degrees 114/minute 20/minute 120/88 Weight 138.2 kg Jude Fernández APRN.CNP 01/24/2023 10:30 AM Signed Subjective HPI HPI Luis Crook is a [...] None Mother Ischemic Heart Disease Father fatal [place] age 51 Social History Tobacco Use Smoking [...] DIP OB, URINE (POC) - URINE CULTURE Jude Fernández APRN.Jude Baez APRN.CNP 01/24/2023 9:42 AM Signed How to Manage Common Symptoms Associated with [...] associated with COVID and can be bothersome. (more content not included)... Normal [facility] COVID AND INFLUENZA A/B AND RSV NAAT, ROUTINEon 01-24-2023 SARS-CoV-2 (COVID-19) RNA SEDRICK+probe Ql (Unsp spec) COVID 19 RESULT: Detected The method used is RT-PCR or an equivalent NAAT method. Reference Range (the expected result in uninfected individuals): Not detected INFLUENZA A PCR: Not detected INFLUENZA B PCR: Not detected RSV PCR: Not detected Abnormal [facility] Comment on above: Performed By: #### C VFLRS #### [facility] CLIA [id number] [address] [place] [address] [place] UA DIP, URINE (POC)on 2022 BILIRUBIN UA (POCT) Negative Negative [facility] CLARITY UA (POCT) Cloudy [facility] COLOR UA (POCT) Dark yellow [facility] GLUCOSE UA (POCT) Negative Negative mg/dL [facility] Hemoglobin Ql (U) Negative Negative [facility] KETONE UA (POCT) Trace Negative mg/dL [facility] LEUKOCYTES UA (POCT) Negative Negative [facility] NITRITE UA (POCT) Negative Negative [facility] PH UA (POCT) 6.0 4.5 - 8.0 [facility] Protein Ql (U) Trace Abnormal Negative mg/dL [facility] SPECIFIC GRAVITY UA (POCT) 1.025 1.005 - 1.030 [facility] UROBILINOGEN UA (POCT) 1.0 E.U./dL Kori l E.U./dL [facility] CNOVon 12-15-2022 CNOV Office Visit ([facility]) LUIS CROOK ([id number]) 1980 F Date Time Provider Department 12/15/22 9:30 AM SIMBA VILLAREALTR During your visit today, we recorded the following information about you: Temperature Pulse Respiration Blood pressure 98.4 degrees 84/minute 18/minute 128/82 Weight 140.6 kg Simba Villareal APRN.BAKE ROOM WORKER 12/15/2022 10:01 AM Signed This note was created using Fixberriter. Subjective Luis Crook is a 42 year old female. 42 year old female with no PMH presents for illness. Acute onset 12/03/22 +sinus pressure +nasal congestion +ear fullness. +headache +sore throat Denies cough Denies SOB or dyspnea Denies N/V/D Has used allergy medicine and OTC without relief. Denies tobacco usage. The history is provided by the patient. No shroudman was used. Sinus Problem This is a [...] (one) Tablet by mouth two times daily amoxicillin-clavulan ic acid (AUGMENTIN) 875-125 mg per tablet Take [...] None Mother Ischemic Heart Disease Father fatal [place] age 51 Social History Tobacco Use Smoking [...] Negative for color change, pallor and rash. Allergic/Immunologic : Negative for environmental allergies, food allergies and immunocompromised state. Neurological: Positive for headaches. Negative for vertigo, weakness and numbness. Hematological: Negative for adenopathy. Does not bruise/bleed easily. Psychiatric/Behavior al: Negative for agitation and behavioral problems. Objective [...] heard. No friction rub. Pulmonary: Effort: Pulmonary eff (more content not included)... Normal [facility] Vital Signs Date Time Vital Sign Value Performing Clinician Faci lity 03-16-2023 23:34-0500 Diastolic blood pressure 72 mm[Hg] [facility] 03-16-2023 23:34-0500 Heart rate 80 /min [facility] 03-16-2023 23:34-0500 Respiratory rate 18 /min [facility] 03-16-2023 23:34-0500 Systolic blood pressure 136 mm[Hg] [facility] 03-16-2023 22:56-0500 Body height 165.1 cm [facility] 03-16-2023 22:56-0500 Body mass index (BMI) [Ratio] 52.4 kg/m2 [facility] 03-16-2023 22:56-0500 Body temperature 96.9 [degF] [facility] 03-16-2023 22:56-0500 Body weight 143 kg [facility] 03-16-2023 22:56-0500 SaO2% (BldA) [Mass fraction] 100 % [facility] 01-24-2023 09:16-0500 Body temperature 99.7 [degF] Jude Fernández APRN.BAKE ROOM WORKER Work Phone: [facility] 01-24-2023 09:16-0500 Body weight 138.17 kg Jude Fernández APRN.CNP Work Phone: [facility] 01-24-2023 09:16-0500 Diastolic blood pressure 88 mm[Hg] Jude Fernández APRN.BAKE ROOM WORKER Work Phone: [facility] 01-24-2023 09:16-0500 Heart rate 114 /min Jude Pradeep COMPUTER PROGRAMMING MANAGER.BAKE ROOM WORKER Work Phone: [facility] 01-24-2023 09:16-0500 Respiratory rate 20 /min Jude Pradeep COMPUTER PROGRAMMING MANAGER.BAKE ROOM WORKER Work Phone: [facility] 01-24-2023 09:16-0500 SaO2% (BldA) [Mass fraction] 94 % Jude Pradeep COMPUTER PROGRAMMING MANAGER.BAKE ROOM WORKER Work Phone: [facility] 01-24-2023 09:16-0500 Systolic blood pressure 120 mm[Hg] Jude Pradeep COMPUTER PROGRAMMING MANAGER.BAKE ROOM WORKER Work Phone: [facility] 12-15-2022 09:31-0400 Body temperature 98.4 [degF] Simba Villareal COMPUTER PROGRAMMING MANAGER.BAKE ROOM WORKER Work Phone: [facility] 12-15-2022 09:31-0400 Body weight 140.62 kg Simba Villareal COMPUTER PROGRAMMING MANAGER.BAKE ROOM WORKER Work Phone: [facility] 12-15-2022 09:31-0400 Diastolic blood pressure 82 mm[Hg] Simba Villareal COMPUTER PROGRAMMING MANAGER.BAKE ROOM WORKER Work Phone: [facility] 12-15-2022 09:31-0400 Heart rate 84 /min Simba Villareal COMPUTER PROGRAMMING MANAGER.BAKE ROOM WORKER Work Phone: [facility] 12-15-2022 09:31-0400 Respiratory rate 18 /min Simba Villareal COMPUTER PROGRAMMING MANAGER.BAKE ROOM WORKER Work Phone: [facility] 12-15-2022 09:31-0400 SaO2% (BldA) [Mass fraction] 98 % Simba Villareal COMPUTER PROGRAMMING MANAGER.BAKE ROOM WORKER Work Phone: [facility] 12-15-2022 09:31-0400 Systolic blood pressure 128 mm[Hg] Simba Villareal COMPUTER PROGRAMMING MANAGER.BAKE ROOM WORKER Work Phone: [facility] Encounters Encounter Date Encounter Type Care Provider Facility Start: 07-24-2024 End: 07-24-[address] Stephane Riojas MD Work Phone: [facility] Work Phone: Start: 07-24-2024 End: 07-24-[address] Stephane Riojas MD -Outpatient Breast Imaging Work Phone: Start: 07-24-2024 End: 07-24-2024 ambulatory Stephane [place] Facility:[facility] Start: 07-10-2024 End: 07-10-[address] Stehpane Riojas MD Work Phone: [facility] Work Phone: Start: 07-10-2024 End: 07-10-[address] Stephane Riojas MD -[facility] [place] Work Phone: Start: 07-10-2024 End: 07-10-2024 ambulatory Stephane Riojas Facility:[facility] Start: 03-16-2023 End: 03-16-2023 Emergency department patient visit [facility] Work Phone: Start: 01-26-2023 Telephone encounter Simba narayanan COMPUTER PROGRAMMING MANAGER.BAKE ROOM WORKER Work Phone: [facility] Comment on above: Results Start: 01-24-2023 End: 01-24-2023 ambulatory STEPHANE Quintin RIOJAS Facility:[facility] Start: 01-24-2023 End: 01-24-2023 Patient encounter procedure Jude Fernández COMPUTER PROGRAMMING MANAGER.BAKE ROOM WORKER Work Phone: [facility] Comment on above: URI, acute (Primary Dx); Urinary frequency Start: 12-15-2022 End: 12-15-2022 ambulatory Lucie Albright RN [facility] Start: 12-15-2022 Follow-up encounter Lucie Vance NURSE HEALTH UNIT COORDINATOR Comment on above: Follow Up Start: 12-15-2022 End: 12-15-2022 Patient encounter procedure Simba Villareal COMPUTER PROGRAMMING MANAGER.BAKE ROOM WORKER Work Phone: [facility] Comment on above: Rhinosinusitis (Prim nava Dx) Procedures Date Procedure Procedure Detail Performing Clinician Start: 07-24-2024 Screening mammograph y of bilateral breasts Dr. Stephane Riojas MD Work Phone: Start: 07-10-2024 Iadna hepatitis c qu ant & reverse aeroplane pilot Dr. Stephane Riojas MD Work Phone: Comment on above: Test not performed Start: 07-10-2024 Vitamin D, 25-hydrox y measurement Dr. Stephane Riojas MD Work Phone: Comment on above: Vitamin D StatusDefi ciency: <20 ng/mL (50nmol/L)Insufficiency: 20-30 ng/mL (50-75 nmol/L)Sufficiency: 30-100 ng/mL (75-250 nmol/L)Toxicity: >100 ng/mL (>250 nmol/L) Start: 01-24-2023 Urnls dip stick/tabl et rgnt auto w/o microscopy [facility] Provider Plan of Treatment Date Care Activity Detail Author Start: 03-16-2023 [facility] Start: 01-26-2023 End: 04-27-2023 Bacteria identified in Urine by Culture URINE CULTURE Microbiology Routine Urinary frequency Expected: 01/26/2023, Expires: 04/27/2023 [facility] Work Phone: Comment on above: Expected: 01/26/2023 , Expires: 04/27/2023 Start: 2023 Cologuard (FIT-DNA) Cologuard (FIT-D NA) [facility] Start: 2023 Colonoscopy Colonoscopy [facility] Start: 2023 Colorectal Cancer Screening Colorectal Cancer Screening [facility] Start: [address] Colonography [facility] Start: 2023 Diabetes Screening Diabetes Screenin g [facility] Start: 2023 Fecal Occult Blood Fecal Occult Bloo d [facility] Start: 2023 Lipid 1996 panel - S jonas or Plasma Lipid Screening [facility] Start: 2023 Sigmoidoscopy Sigmoidoscopy [facility] Start: 10-27-2022 Influenza vaccination Influenza Vacc ine (#1) [facility] Start: 02-26-2022 Depression Assessment Depression Ass essment [facility] Start: 2018 Mammography Mammogram Screening [facility] Start: 01-08-2008 HPV Testing HPV Testing [facility] Start: 1999 Pap Testing Pap Testing [facility] Start: 1997 Urine microalbumin profile DTaP,Tdap,Td Vaccine (1 - Tdap) [facility] Start: 01-08-1996 Hepatitis C Screening Hepatitis C Sc reening [facility] Start: 01-08-1996 HIV Screening HIV Screening [facility] Start: 01-08-1984 Pneumococcal vaccination Pneum ococcal Vaccine (1 - PCV) [facility] Start: 1978 Covid-19 Vaccine (#1) Covid-19 Vacci ne (#1) [facility] Start: 1978 Hepatitis B Vaccine (1 of 3 - 3-dose series) Hepatitis B Vaccine (1 of 3 - 3-dose series) [facility] Bacteria identified in Urine by Culture URINE CULTURE Microbiology Routine Urinary frequency 01/24/2023 10:31 AM EST [facility] Work Phone: COVID & INFLUENZA A/ B & RSV NAAT, ROUTINE COVID & INFLUENZA A/B & RSV NAAT, ROUTINE Microbiology Routine URI, acute 01/24/2023 10:31 AM EST [facility] Work Phone: Patient referral [facility] Work Phone: UA DIP OB, URINE (POC) UA DIP OB , URINE (POC) Lab Routine Urinary frequency Ordered: 01/24/2023 [facility] Work Phone: Comment on above: Ordered: 01/24/2023 Payers Date Payer Category Payer Self-pay [id number] 2024 Unknown [id number] Unknown ANTHEM [id number] Unknown CHISHOLM [id number] Unknown [employer] [id number] Unknown [id number] Unknown [id number] Social History Date Type Detail Facility Start: [facility]-15-[facility]22 [facility] History of tobacco use Cigarette Smoker [facility] Start: 02-02-2020 End: 12-15-2022 Cigarettes smoked current (pack per day) - Reported 0.5 [facility] Start: 12-15-2022 Tobacco use and exposure Smokeless tobacco non-user [facility] Start: 12-15-2022 End: 01-24-2023 Alcohol intake Current drinker of alcohol (finding) [facility] Start: 02-02-2020 End: 12-15-2022 Tobacco use panel [facility] National Score (1-10 0), lower number is lower risk Not on file [facility] Start: 01-30-2019 Alcohol Comment [facility] Start: 1980 Sex Assigned At Not on file [facility] Start: 03-16-2023 Tobacco smoking stat [facility] Unknown if ever smoked [facility] Start: 01-30-2019 None [facility] Start: 01-30-2019 Roommate [facility] Start: 1980 Sex Assigned At Female [facility] Start: 03-16-2023 [facility] Mental Status Date Assessment Result Facility 03-16-2023 Cognitive function Level Of Cons ciousness Awake;Alert;Appropriate;Follow s Commands [facility] Work Phone: Clinical Notes 12-15-2022 to 03-16-2023 Note Date & Type Note Facility 03-16-2023 Discharge summary Note Date/Time March 16, 2023 11:25pm [facility] Medical Records Department [address] [place] [address] Emergency Department Summary 03/16/23 MR#: [id number] Acct: [id number] Name: LUIS CROOK Rep #:[id number] : 1980 43 From: Neftaly Smiley MD PCP: Dr. Stephane Riojas MD Status:REG ER Location: ED HPI History of Present Illness Chief Complaint: Edema Detail of Chief Complaint: Right-sided preauricular facial swelling that is resolved. Informant: patient Onset/Context/Timing Onset: Today and Hours Context: Gradual Onset Current Severity: Gone Maximum Severity: Mild Narrative Narrative: 43-year-old female history of depression. Said several hours ago she noticed swelling in the preauricular area of her right jaw just before the ear. Denies any dental pain. No trauma. No earache. No sore throat. No fever. No trouble swallowing or breathing. States it is much better and almost completely resolved now. No prior history. Prior similar symptoms: No Recent Illness/Hospitalization: No PFSH PFSH Medical History Cellulitis of right forearm COVID Depression Obesity Home Medications bupropion HCl 150 mg tablet,12 hr sustained-release 150 mg PO DAILY mental health 01/31/19 [History Last Taken 09/13/20] Allergy/AdvReac Type Severity Reaction Status Date / Time hops AdvReac Other Verified 03/16/23 22:55 Social History Smoking Status: Former smoker ROS ROS ED ROS Narrative Denies recent illness Review of Systems ROS Unobtainable: Denies due to encephalopathy Constitutional Constitutional ED: Denies chills or fever(s) Eyes Eyes: Denies blurry vision ENT ENT ED: Denies ear pain Cardiovascular Cardiovascular: Denies chest pain Respiratory/Chest Respiratory/Chest: Denies cough Gastrointestinal Gastrointestinal: Denies abdominal pain Genitourinary Genitourinary ED: Denies dysuria or hematuria Musculoskeletal Musculoskeletal: Denies arthralgias Integumentary Denies abscess or Abrasions Neurologic Neurologic: Denies headache(s) Psychiatric Psychiatric: Denies anxiety or depression Endocrine Endocrinology: Denies cold intolerance Hematologic/Lymphatic Hematologic/Lymphatic: Reports none Allergic/Immunologic Allergic/Immunologic ED: Denies mouth swelling, tongue swelling or urticaria EXAM Physical Exam Narrative Exam Narrative: Well-appearing 43-year-old female. Vital signs are stable afebrile. H EENT exam pupils round reactive light. TMs are normal bilaterally. No signs of infection. Posterior pharynx normal. No trouble opening or closing her mouth. Currently no facial swelling. No salivary gland swelling. No cervical or preauricular lymphadenopathy. No abscess. No trouble opening closing her mouth. No gingival infection. No sublingual infection in her mouth. Good dentition. Neck there is no lymphadenopathy. Trachea midline. Lungs clear to auscultation. Heart regular rhythm no murmur. Abdomen soft nontender. Back nontender. Neurologically she is awake and alert with no focal motor deficits. Moving all 4 extremities. Nontender no edema. Recently has a normal exam. Currently there is no swelling or lymphadenopathy. No abscess or swollen salivary gland. Const Vital Signs: 03/16/23 22:56 03/16/23 22:55 Temperature 96.9 F L 96.9 F L Temperature Source Temporal Temporal Pulse Rate 98 98 Respiratory Rate 24 H 24 H Blood Pressure 147/96 H 147/96 H Blood Pressure Mean 113 113 Pulse Ox 100 100 Oxygen Delivery Method Room Air Room Air Positive well nourished and well developed; Negative for cachectic, contracturesor unkempt General Appearance ED: well developed and NAD; Negative for unkempt, cachectic, contractures, cyanotic, diaphoretic or pallor Nutritional Appearance: Negative for cachectic HEENT Reports TM's clear and moist mucous membranes; Denies dry mucous membranes or other Negative for trauma, tenderness or other Tympanic Membrane ED: Yes TM's clear Mouth ED: No dry mucous membranes Mouth: No dry mucous membranes Eyes PERRL and EOMs intact bilaterally General Eye ED: Negative for pale conjunctiva, scleral icterus or other Neck no lymphadenopathy, supple and no JVD General: Negative for tenderness Lymph Lymphatic: Negative for other Chest Wall inspection of chest normal and palpation of chest normal Chest: Negative for other Resp normal respiratory effort and clear to auscultation bilaterally Effort and Inspection: Negative for retractions Auscultation: Negative for rales, rhonchi or wheezes Cardio regular rate, regular rhythm, S1 normal heart sound, S2 normal heart sound and no murmurs Palpation: Negative for palpable S3 Rate: Negative for bradycardia Rhythm: Negative for abnormal rhythm GI normal to inspection, nondistended, normoactive bowel sounds, non-tender, non-distended and no masses Inspection: Negative for abdominal distention Auscultation: normoactive bowel sounds Palpation: soft; Negative for tender or guarding Back/Spine no CVA tenderness General Back: Negative for CVA tenderness Cervical Spine: Negative for cervical spine tenderness Thoracic Spine / Upper Back: Negative for thoracic spinal tenderness Lumbar Spine / Lower Back: Negative for lumbar spinal tenderness Extremity normal to inspection General Extremety ED: Negative for edema or tenderness General Extremity: Negative for edema Neuro oriented x3 and CN's II-XII intact bilaterally Sensorium / Orientation: alert; Negative for orientation impaired, lethargic or stuporous Motor Exam: strength 5/5 throughout; Negative for general weakness or strength abnormal Psych mental status grossly normal Appearance: Negative for unkempt or other Attitude: No agitated Mood & Affect: Negative for depressed or tearful Skin no rashes or lesions noted, no wounds and skin turgor normal General Skin Exam: Negative for elasticity normal, jaundice or pallor Lesions: No lesion noted Rashes: No rashes noted Trauma: Negative for abrasion Wounds: Negative for wounds noted MDM MDM MDM Narrative Medical decision making narrative: 43-year-old female that had right-sided preauricular facial swelling that is nowresolved. Is a normal exam. There is no signs of preauricular or cervical lymphadenopathy. There is no signs of dental or posterior pharyngeal infection. There is no gingivitis. TMs are normal. Follow-up as needed. Return if worse. She does not need antibiotics or imaging at this time she is not a lab work. Discharge Plan Triage Chief Complaint: Edema ED Provider: Neftaly Smiley Dx/Rx/DC Orders Clinical Impression: Facial swelling, History of depression Prescriptions: No Action bupropion HCl 150 MG tablet sustained-release 12 hr 150 mg PO DAILY Patient Comments: TAKE 1 TABLET BY MOUTH TWICE DAILY Primary Care Provider: Stephane Riojas Referrals: Stephane Riojas MD [Primary Care Provider] - 3-5 Days if not improving Activity Restrictions/Additional Instructions: Motrin for any pain or swelling. At this time there is no signs of any infection I do not think you need an antibiotic. Your ears look good. Your posterior pharynx of your throat looks good. There is no obvious dental infection. There is no obvious infection of your lymph nodes or salivary glands. Follow-up with your doctor if not improving or return emergency department if worse. Disposition Disposition: Home, Self Care What to do if you have Problems For any increased pain, shortness of breath, bleeding, nausea or vomiting, chestpain, or any unexpected problems, contact your Primary Care Provider. Call [facility] ([phone]) or report to the closest Emergency Room. Call 911 if necessary. 03/16/236 <Electronically signed by Neftaly Smiley MD> Cosigner Signature (if applicable): CC: Dr. Stephane Riojas MD ~ Signed [facility] Work Phone: [phone] 587-488312-01-2023 Miscellaneous Notes* Telephone Encounter - Aarti Freed - 01/26/2023 11:49 AM EST Spoke to patient and she is aware that there is a new order in, but patient states she will call back in when she figures out when she is able to come in. Aarti Freed * Telephone Encounter - Simba Villareal APRN.KAELYN - 01/26/2023 11:21 AM EST Please inform patient that her urine culture had mixed microbe and essentially a contaminated specimen. This can occur during time of collection. I have placed a new order for urine culture. Please notify and request patient to present for new specimen. She does not need to be seen again, just a nurse visit to provide new specimen. documented in this encounterFire[facility]11-29-2023 NoteHNO ID: [id number] Author: Jude Fernández APRN.KAELYN Service: ? Author Type: Nurse [...] None Mother Ischemic Heart Disease Father fatal [place] age 51 Social History Tobacco Use Smoking [...] DIP OB, URINE (POC) - URINE CULTURE Jude Fernández APRN.[facility]11-29-2023 Instructions* Patient Instructions* Jude Fernández APRN.[facility] - 01/24/2023 9:42 AM EST How to Manage Common Symptoms Associated with COVID for Adults Fever- Fever is a temperature over 100.4 F and can occur when the body is fighting an infection. Tohelp treat a fever: Drink plenty of fluids [...] your chest such as Vicks, which can helpreduce cough. Try cough drops. Avoid smoking and other strong odors or perfumes. Try breathing exercises to keep your lungs open and clear. Take a big deep breath through your noseand hold for 5 seconds before slowly releasing. [...] of water every 10-15 minutes and increase astolerated. You can try sucking an ice cube [...] or concerning to you. documented in this encounterFirelands [facility] Medical Center11-29-2023 History of Present illness Narrative* Jude Fernández APRN.CNP - 01/24/2023 9:36 AM EST Subjective HPI HPI Luis Crook is a 43 year old female who presents today for CC of st, cough, body aches, fever, loss tastes/smell, urinary frequency. This started 2 days ago. Has tried otc medication for relief. Symptoms are worsened by nothing. Risk factors sick exposures recently. Denies possibility ofbeing . nonsmoker. .Patient presents with: Sore Throat: [...] 2 Puffs as instructed every 4 hours asneeded for Wheezing/Shortness of Breath. (Patient not taking: Reported on 12/15/2022) FAMILY HISTORY Problem Relation Age of Onset None Mother Ischemic Heart Disease Father fatal PR age 51 Social History Tobacco Use Smoking [...] DIP OB, URINE (POC) - URINE CULTURE Jude Fernández APRN.KAELYN documented in this encounterFirelands [facility] Medical Center10-20-2023 Miscellaneous Notes* Telephone Encounter - Lucie Albright RN - 12/15/2022 6:54 PM EDT Patient calling with health information: patient requesting health information about a prescriptionfor methylprednisolone from the pharmacy and was unsure of how to take it. . Patient denies any newor worsening symptoms of which a provider is [...] further assistance is needed. documented in this encounterFirelands Regional Medical Center10-20-2023 NoteHNO ID: [id number] Author: Simba Villareal APRN.KAELYN Service: ? Author Type: Nurse Practitioner Type: Progress Notes Filed: 12/15/2022 10:01 AM Note Text: This note was created using Phokkiter. Subjective Luis Crook is a 42 year old female. 42 year old female with no PMH presents for illness. Acute onset 12/03/22 +sinus pressure +nasal congestion +ear fullness. +headache +sore throat Denies cough Denies SOB or dyspnea Denies N/V/D Has used allergy medicine and OTC without relief. Denies tobacco usage. The history is provided by the patient. No shroudman was used. Sinus Problem This is a [...] None Mother Ischemic Heart Disease Father fatal PR age 51 Social History Tobacco Use Smoking [...] no mass. Tenderness: The (more content not included)...[facility] 12-15-2022 Instructions* Patient Instructions* Simba Villareal APRN.[facility] - 12/15/2022 9:55 AM EDT Images from the original note were not included. Adult Sinusitis Patient Education What is Sinusitis? Sinusitis [ezni-wuk-ojvs-tis] is inflammation of the sinuses or swelling [...] humidity and outdoor temperature changes, andstructural changes inthe nose may contribute to sinus pain, pressure [...] help. You may be instructed to take zymk-sco-mlislzi medications for symptoms. including fever reducers acetaminophen or ibuprofen, nasal saline spray, cough and cold preparations and decongestants as prescribed by the physician, nurse practitioner or physician academic assistant. Self-Care and Prevention: Rest Fluids for hydration Good hand washing Humidifier Avoid smoking and exposure to second hand smoke Avoid sick contacts documented in this encounterFirelands Regional Medical Center10-20-2023 History of Present illness Narrative* Simba Villareal APRN.KAELYN - 12/15/2022 9:51 AM EDT This note was created using Fixberriter. Subjective Luis Crook is a 42 year old female. 42 year old female with no PMH presents for illness. Acute onset 12/03/22 +sinus pressure +nasal congestion +ear fullness. +headache +sore throat Denies cough Denies SOB or dyspnea Denies N/V/D Has used allergy medicine and OTC without relief. Denies tobacco usage. The history is provided by the patient. No shroudman was used. Sinus Problem This is a new problem. The current episode started 1 to 4 weeks ago. The problem occurs constantly.The problem has been gradually worsening. Associated symptoms include congestion, fatigue, headaches and a sore throat. Pertinent negatives include no abdominal pain, anorexia, arthralgias, change inbowel habit, chest pain, chills, coughing, diaphoresis, fever, [...] 2 Puffs as instructed every 4 hours asneeded for Wheezing/Shortness of Breath. (Patient not taking: Reported on 12/15/2022) FAMILY HISTORY Problem Relation Age of Onset None Mother Ischemic Heart Disease Father fatal PR age 51 Social History Tobacco Use Smoking [...] 3-5 days if symptoms persist or worsen. Simba Villareal APRN.BAKE ROOM WORKER [facility]* Diagnosis Rhinosinusitis- Primary Unspecified sinusitis (chronic) documented in this encounter [facility] note* Diagnosis URI, acute- Primary Acute upper respiratory infections of unspecified site Urinary frequency documented in this encounter [facility] note* Diagnosis Urinary frequency- Primary documented in this encounter [facility] noteNo assessment information availableWChillicothe [facility] Work Phone: Hospital Discharge instructions Additional Instructions Motrin for any pain or swelling. At this time there is no signs of any infection I do not think you need an antibiotic. Your ears look good. Your posterior pharynx of your throat looks good. There is no obvious dental infection. There is no obvious infection of your lymph nodes or salivary glands. Follow-up with your doctor if not improving or return emergency department if worse.[facility] Work Phone: Reason for referral (narrative)No reason for referral information availableWChillicothe [facility] Work Phone: Health Concerns Infection Onset Date Last Indicated Resolved Time COVID-19 Confirmed 01/24/2023 01/24/2023 Chief Complaint and Reason for Visit Chief Complaint FACIAL EDEMA Chief Complaint Admit Date E-ORDER July 10, 2024 3:14p m Chief Complaint Admit Date E-ORDER July 10, 2024 3:14p m SCREENING July 24, 2024 7:07a m Advance Directives No Advanced Directives Records Found Advance Directive Response Recorded Date/ Time Living Will No March 16 11:22pm Power of Welcome Hostess No March 16, 2023 11:22pm Summary Purpose Family History No Family History Records FoundNo Family History Records Found Additional Source Comments Source Comments (unrecognize d section and content) In the event this informatio n is protected by the Federal Confidentiality of Alcohol and Drug Abuse Patient Records regulations: The Federal rules restrict any use of the information to criminally investigate or prosecute any alcohol or drug abuse patient.Fire[facility] Medical CenterIn the event this information is protected by the Federal Confidentiality of Alcohol and Drug Abuse Patient Records regulations: The Federal rules restrict any use of the information to criminally investigate or prosecute any alcohol or drug abuse patient.[facility] CenterIn the event this information is protected by the Federal Confidentiality of Alcohol and Drug Abuse Patient Records regulations: The Federal rules restrict any use of the information to criminally investigate or prosecute any alcohol or drug abuse patient.[facility] Center[facility] the event this information is protected by the Federal Confidentiality of Alcohol and Drug Abuse Patient Records regulations: The Federal rules restrict any use of the information to criminally investigate or prosecute any alcohol or drug abuse patient.[facility] Reason for Visit (unrecogniz ed section and content) Reason Comments Sinus Problem Sinus congestion, ST and MARTINEZ x 1.5 weeks Reason Comments Follow Up Reason Comments Sore Throat Body aches, cough, l oss of taste x 2 days Reason Comments Results Care Teams (unrecognized sec tion and content) Direct Marketing Specialist Relationship Specialty Start Date End Date Stephane Riojas MD [address] [place] [address] PCP - General Family Medicine 12/15/22 Direct Marketing Specialist Relationship Specialty Start Date End Date Stephane Riojas MD [address] [place] [address] PCP - General Family Medicine 12/15/22 Direct Marketing Specialist Relationship Specialty Start Date End Date Stephane Riojas MD [address] [place] [address] PCP - General Family Medicine 12/15/22 Direct Marketing Specialist Relationship Specialty Start Date End Date Stephane Riojas MD [address] [place] [address] PCP - General Family Medicine 12/15/22 Team Status: Active Member Role Status Dates Dr. Stephane Riojas MD Family Provider Active Dr. Stephane Riojas MD Primary Care Provider Active Team Status: Inactive Member Role Status Dates Dr. Stephane Riojas MD Primary Care Provider Active Dr. Neftaly Smiley MD Emergency Provider Active Team Status: Active Member Role Status Dates Dr. Stephane Riojas MD Primary Care Provider Active Team Status: Inactive Member Role Status Dates Dr. Stephane Riojas MD Primary Care Provider Active Start: July 10, 2024 End: July 10, 2024 Dr. Stephane Riojas MD Attending Provider Active St art: July 10, 2024 End: July 10, 2024 Dr. Stephane Riojas MD Referring Provider Active St art: July 10, 2024 End: July 10, 2024 Team Status: Inactive Member Role Status Dates Dr. Stephane Riojas MD Primary Care Provider Active Start: July 24, 2024 End: July 24, 2024 Dr. Stephane Riojas MD Attending Provider Active St art: July 24, 2024 End: July 24, 2024 Dr. Stephane Riojas MD Referring Provider Active St art: July 24, 2024 End: July 24, 2024 Goals (unrecognized section and content) Goals may be documented in a n alternate sectionGoals may be documented in an alternate sectionGoals may be documented in an alternate section INFORMATION SOURCE (unrecogn ized section and content) DATE CREATED AUTHOR 04/10/2023 [facility] DATE CREATED AUTHOR 'S ARNALDO VIDAL 07/30/2024 [facility] FOR RECORDS PERTAINING TO PATIENTS WHO ARE [...] BE BASED ON THE PRIMARY CLINICAL RECORDS. [employer] provides no warranty or guarantee of the accuracy or completeness of information in this document.
[2024-08-28 00:11] LABS: Calcium Oxalate Crystals Ur 2+ /hpf (<or=2+); Mucous, Urine 3+ /hpf (<or=2+); Squamous Epithelial Cells - UA 10-25 SEEN /hpf (5-10)
[2024-08-28 00:14] LABS: Hematocrit 43.7 % (37-47); Hemoglobin 14.3 g/dL (12.0-15.0); Immature Granulocytes Count 0.030 X10^3/uL (0.0-0.0); Mean Corp Hgb Conc 32.7 g/dL (32-36); Mean Corpuscular Volume 87.6 fL (81-99); Mean Platelet Vol. 11.8 fl (6.2-12.0); NRBC Flagged by Analyzer 0 % (0-5); POSITIVE MORPHOLOGY YES; Platelet Count 348 K/mm3 (150-450); RBC Distribution Width CV 13.4 % (11.6-14.6); RBC Distribution Width SD 42.3 fl (35.1-43.9); Red Blood Count 4.99 M/mm3 (4.2-5.4); White Blood Count 9.5 K/mm3 (4.4-11.0)
[2024-08-28 00:15] LABS: Differential Indicated SCAN CRITERIA MET
[2024-08-28 00:33] LABS: Lipase 14 U/L (13-75)
[2024-08-28 00:34] VITALS: BP 111/81; PULSE 74; RESP 16; O2SAT 100
[2024-08-28 00:35] LABS: AST(SGOT) 26 U/L (<=31); Alanine Aminotransfer ALT/SGPT 12 U/L (<=34); Albumin, Serum 4.0 g/dL (3.5-5.0); Alkaline Phosphatase 65 U/L (35-104); Anion Gap 14 (5-15); BUN 11 mg/dL (4-19); BUN/Creat Ratio 15.6 RATIO (10-20); Calcium,Total 9.3 mg/dL (7.6-11.0); Carbon Dioxide 21.4 mmol/L (21.0-32.0); Chloride 104 mmol/L (98-108); Estimated Creatinine Clearance 143.44 ml/min (50-250); Globulin 3.2 g/dL (2.2-4.2); Glucose 97 mg/dL (70-99); Potassium 4.5 mmol/L (3.3-5.1)
[2024-08-28 00:41] LABS: Differential Comment SCANNED
[2024-08-28 01:24] VITALS: BP 95/58; PULSE 78; RESP 16; TEMP 36.7; O2SAT 97
== END 2024-08-28 01:34 | disposition home or self-care (01) ==
PROVIDERS: Emergency Provider Surgery; PCP Family Medicine; Visit Provider Surgery
DX: R11.2 Nausea with vomiting, unspecified (principal); R19.7 Diarrhea, unspecified; Z87.891 Personal history of nicotine dependence; Z86.16 Personal history of COVID-19
CPT/HCPCS: 80053; 81001; 81025; 83690; 85025; 87086; 87088; 96361; 96374; 96376; 99283; A4216; J2405

== ENCOUNTER → 2024-09-10 | Outpatient (CLI) | payer BC, SELFPAY ==
[2024-09-10 10:47] LABS: Hematocrit 40.5 % (37-47); Hemoglobin 13.3 g/dL (12.0-15.0); Immature Granulocytes Count 0.020 X10^3/uL (0.0-0.0); Mean Corp Hgb Conc 32.8 g/dL (32-36); Mean Corpuscular Volume 87.9 fL (81-99); Mean Platelet Vol. 11.8 fl (6.2-12.0); NRBC Flagged by Analyzer 0 % (0-5); POSITIVE DIFFERENTIAL YES; Platelet Count 266 K/mm3 (150-450); RBC Distribution Width CV 13.9 % (11.6-14.6); RBC Distribution Width SD 44.7 fl (35.1-43.9); Red Blood Count 4.61 M/mm3 (4.2-5.4); White Blood Count 10.1 K/mm3 (4.4-11.0)
[2024-09-10 10:49] LABS: Differential Indicated SCAN CRITERIA MET
[2024-09-10 11:14] LABS: Differential Comment SCANNED
[2024-09-10 12:25] LABS: AST(SGOT) 25 U/L (<=31); Alanine Aminotransfer ALT/SGPT 25 U/L (<=34); Albumin, Serum 3.7 g/dL (3.5-5.0); Alkaline Phosphatase 55 U/L (35-104); Anion Gap 12 (5-15); BUN 5 mg/dL (4-19); BUN/Creat Ratio 7.9 RATIO (10-20); Calcium,Total 8.9 mg/dL (7.6-11.0); Carbon Dioxide 24.1 mmol/L (21.0-32.0); Chloride 102 mmol/L (98-108); Globulin 2.9 g/dL (2.2-4.2); Glucose 105 mg/dL (70-99); Lipase 26 U/L (13-75); Potassium 3.4 mmol/L (3.3-5.1)
== END | disposition home or self-care (01) ==
LOC: MFPLAB 08:32
PROVIDERS: PCP Family Medicine; Visit Provider Nurse Practitioner Family
DX: R11.2 Nausea with vomiting, unspecified (principal)
CPT/HCPCS: 36415; 80053; 83690; 85025

== ENCOUNTER 2024-12-12 05:50 | Day surgery (SDC) | payer BC, SELFPAY ==
[2024-12-12] VITALS (8 sets, daily range): BP systolic 115–133; BP diastolic 78–90; PULSE 67–77; RESP 16; TEMP 36.1–36.2; O2SAT 92–100; BMI 44.4
[2024-12-12] MEDS: Lactated Ringers 1,000 ML 15 ML IV (06:45)
[2024-12-12 06:46] LABS: Internal QC Validated? YES +Cl - CLEAR BKGD; Pregnancy, Urine Negative Negative; Record Kit Lot#,Urine Preg 0000980607
== END 2024-12-12 08:26 | disposition home or self-care (01) ==
LOC: EN 05:50 → AC 05:51
PROVIDERS: Anesthesiology; PCP Family Medicine; Referring Provider Family Medicine; Visit Provider Internal Medicine Gastroenterology
PROC: 0DJD8ZZ Inspection of Lower Intestinal Tract, Via Natural or Artificial Opening Endoscopic (ICD-10-PCS; CPT 45378; principal; 2024-12-12 06:55)
DX: Z12.11 Encounter for screening for malignant neoplasm of colon (principal); K52.9 Noninfective gastroenteritis and colitis, unspecified; Z87.891 Personal history of nicotine dependence; K59.00 Constipation, unspecified
CPT/HCPCS: 45380; 81025; 88305; 88341; 88342; J2405